=== PATIENT | female | born 1955 | race Caucasian/White ===

== ENCOUNTER → 2017-11-24 | Outpatient (CLI) | payer OTHER ==
[2017-11-24 08:48] LABS: Basophils # (A) 0.1 k/uL (0-0.2); Basophils % (A) 1 %; Eosinophils # (A) 0.2 k/uL (0-0.7); Eosinophils % (A) 3 %; HCT 46.8 % (34.0-46.0); Lymphocytes # (A) 1.9 k/uL (1.0-4.8); Lymphocytes % (A) 30 %; MCH 30.1 pg (25.0-35.0); MCHC 32.1 g/dL (31.0-37.0); MCV 93.9 fL (80.0-100.0); Monocytes # (A) 0.4 k/uL (0-1.0); Monocytes % (A) 7 %; Neutrophils # (A) 3.8 k/uL (1.3-7.7); Neutrophils % (A) 58 %; Platelet Count 411 k/uL (150-450); RBC 4.99 m/uL (3.80-5.40); RDW 13.2 % (11.5-15.5); WBC 6.5 k/uL (3.8-10.6)
[2017-11-24 09:14] LABS: Albumin 4.3 g/dL (3.5-5.0); Anion Gap 12 mmol/L; Carbon Dioxide 24 mmol/L (22-30); Chloride 107 mmol/L (98-107); Cholesterol 233 mg/dL (<200); Glucose 91 mg/dL (74-99); HDL Cholesterol 76 mg/dL (40-60); LDL Cholesterol,Calculated 134 mg/dL (0-99); Sodium 143 mmol/L (137-145); Total Bilirubin 0.6 mg/dL (0.2-1.3); Total Protein 7.6 g/dL (6.3-8.2); Triglycerides 116 mg/dL (<150)
[2017-11-24 09:17] LABS: ALT 36 U/L (9-52); AST 30 U/L (14-36); Alkaline Phosphatase 136 U/L (38-126); Blood Urea Nitrogen 19 mg/dL (7-17); Potassium 4.9 mmol/L (3.5-5.1)
== END | disposition home or self-care (01) ==
LOC: LABWHC1 08:16
PROVIDERS: ATTEND Internal Medicine
DX: E78.00 Pure hypercholesterolemia, unspecified (principal)
CPT/HCPCS: 36415; 80053; 80061; 85025

== ENCOUNTER → 2018-07-07 | Outpatient (CLI) | payer MEDICARE, OTHER ==
--- NOTE | 2018-07-08 14:07 | MM ---
Reason for exam: screening (asymptomatic). Last mammogram was performed 1 year and 8 months ago. History: Patient is postmenopausal. Physical Findings: A clinical breast exam by your physician is recommended on an annual basis and results should be correlated with mammographic findings. MG 3D Screening Mammo W/Cad Bilateral CC and MLO view(s) were taken. Prior study comparison: October 23, 2016, mammogram. August 23, 2015, mammogram. The breast tissue is heterogeneously dense. This may lower the sensitivity of mammography. No suspicious abnormality. No significant changes when compared with prior studies. ASSESSMENT: Negative, BI-RAD 1 RECOMMENDATION: Routine screening mammogram of both breasts in 1 year.
== END | disposition home or self-care (01) ==
LOC: RADMAMWWP 10:48
PROVIDERS: ATTEND Obstetrics & Gynecology
DX: Z12.31 Encounter for screening mammogram for malignant neoplasm of breast (principal)
CPT/HCPCS: 77063; 77067

== ENCOUNTER → 2019-08-31 | Outpatient (CLI) | payer MEDICARE, OTHER ==
--- NOTE | 2019-09-01 10:51 | MM ---
Reason for exam: screening (asymptomatic). Last mammogram was performed 1 year and 2 months ago. History: Patient is postmenopausal. Physical Findings: A clinical breast exam by your physician is recommended on an annual basis and results should be correlated with mammographic findings. MG 3D Screening Mammo W/Cad Bilateral CC and MLO view(s) were taken. Prior study comparison: July 07, 2018, bilateral MG 3d screening mammo w/cad. October 23, 2016, mammogram. There are scattered fibroglandular densities. No significant changes when compared with prior studies. ASSESSMENT: Benign, BI-RAD 2 RECOMMENDATION: Routine screening mammogram of both breasts in 1 year.
--- NOTE | 2019-09-01 13:35 | BD ---
EXAMINATION TYPE: Axial Bone Density DATE OF EXAM: 08/31/2019 COMPARISON: NONE CLINICAL HISTORY: Height: 60.5 Weight: 133.9 FRAX RISK QUESTIONS: Alcohol (3 or more units per day): no Family History (Parent hip fracture): no Glucocorticoids (More than 3mos): no (Ex: prednisone, prednisolone, methylprednisolone, dexamethasone, and hydrocortisone). History of Fracture in Adulthood: yes Secondary Osteoporosis: 1. Type 1 Diabetes: no 2. Hyperthyroidism: no 3. Menopause before 45: no 4. Malnutrition: no 5. Chronic liver disease: no Rheumatoid Arthritis: no Current Tobacco Use: no/ stopped 3 months ago RISK FACTORS HISTORY OF: History of Wrist Fracture: bilateral wrist When: each as a child one as an adult Family History of Osteoporosis: yes Active: yes Diet low in dairy products/other sources of calcium: yes Postmenopausal woman: age 56 Lost more than 2 inches in height since high school: no MEDICATIONS: advair, omeprazole, benazepril, amlodipine, prevastatin Additional History: EXAM MEASUREMENTS: Bone mineral densitometry was performed using the [employer] System. Bone mineral density as measured about the Lumbar spine is: ----- L1-L4(G/cm2): 0.873 T Score Values are as follows: ----- L2: -2.6 ----- L3: -3.0 ----- L4: -2.5 ----- L1-L4: -2.6 Bone mineral density : baseline Bone mineral density about the R hip (g/cm2): 0.718 Bone mineral density about the L hip (g/cm2): 0.751 T Score values are as follows: -----R Neck: -2.3 -----L Neck: -2.1 -----R Total: -1.9 -----L Total: -1.6 Bone mineral density : baseline IMPRESSION: Osteoporosis NOTE: T-SCORE=SD OF THE YOUNG ADULT MEAN.
== END | disposition home or self-care (01) ==
LOC: RADMAMWWP 15:39
PROVIDERS: ATTEND Obstetrics & Gynecology
DX: Z12.31 Encounter for screening mammogram for malignant neoplasm of breast (principal); Z78.0 Asymptomatic menopausal state; M81.8 Other osteoporosis without current pathological fracture
CPT/HCPCS: 77063; 77067; 77080

== ENCOUNTER → 2020-09-10 | Outpatient (CLI) | payer MEDICARE, OTHER ==
--- NOTE | 2020-09-13 09:46 | MM ---
Reason for exam: screening (asymptomatic). Last mammogram was performed 1 year ago. History: Patient is postmenopausal. Physical Findings: A clinical breast exam by your physician is recommended on an annual basis and results should be correlated with mammographic findings. MG 3D Screening Mammo W/Cad Bilateral CC and MLO view(s) were taken. Prior study comparison: August 31, 2019, bilateral MG 3d screening mammo w/cad. July 07, 2018, bilateral MG 3d screening mammo w/cad. There are scattered fibroglandular densities. No significant changes when compared with prior studies. ASSESSMENT: Benign, BI-RAD 2 RECOMMENDATION: Routine screening mammogram of both breasts in 1 year.
== END | disposition home or self-care (01) ==
LOC: RADMAMWWP 10:48
PROVIDERS: ATTEND Obstetrics & Gynecology
DX: Z12.31 Encounter for screening mammogram for malignant neoplasm of breast (principal); Z78.0 Asymptomatic menopausal state
CPT/HCPCS: 77063; 77067

== ENCOUNTER → 2020-11-23 | Outpatient (CLI) | payer MEDICARE, OTHER ==
--- NOTE | 2020-11-28 10:00 | PE ---
Nuclear medicine PET/CT HISTORY: Solitary pulmonary nodule, initial Patient received 9.8 mCi F-18 FDG intravenously, delayed scanning was performed from the skull base to the mid thighs, an attenuation correction CT, localization CT scan was also performed Correlation to CT low dose chest 11/08/2020, CT chest 08/22/2019 from outside institution Chest and neck: The previously identified abnormal soft tissue in the right upper lobe posteriorly is seen on axial image #78 and is diminished in size as compared to previous chest CT, no associated hy permetabolic uptake. There is no pleural or pericardial effusion. Enlarged thyroid gland is present w ithout associated hypermetabolic uptake, there is associated low dense foci is within the thyroid. Th ere is no mediastinal, axillary, or hilar adenopathy. There are dense coronary artery calcifications. No cervical or supraclavicular adenopathy. ABDOMEN: There is no liver mass. Patient is post cholecystectomy. No evident adrenal mass or retroper itoneal adenopathy. There is no ascites. Osseous structures show degenerative disc change and facet arthropathy in the lower lumbar spine. No associated hypermetabolic uptake. IMPRESSION: There is improvement in the abnormal soft tissue seen on prior exam in the right upper lo be. Findings felt likely to be inflammatory, follow-up to assess for continued resolution.
== END | disposition home or self-care (01) ==
LOC: RADPETMAIN 11:10
PROVIDERS: ATTEND Family Medicine
DX: R91.1 Solitary pulmonary nodule (principal)
CPT/HCPCS: 78815; A9552

== ENCOUNTER → 2020-12-11 | Outpatient (CLI) | payer MEDICARE, OTHER ==
--- NOTE | 2020-12-11 12:35 | XR ---
EXAMINATION TYPE: XR skull limited DATE OF EXAM: 12/11/2020 COMPARISON: None HISTORY: Ear surgery, pre-MRI evaluation TECHNIQUE: Skull is examined in 2 projections. FINDINGS: No radiopaque foreign bodies are identified to contraindicate MRI. Sella is normal. Calvarium appears intact. IMPRESSION: 1. No suspicious radiopaque foreign bodies to contraindicate MRI.
== END | disposition home or self-care (01) ==
LOC: RADXRMAIN 12:07
PROVIDERS: ATTEND Physical Medicine & Rehabilitation
DX: Z01.818 Encounter for other preprocedural examination (principal)
CPT/HCPCS: 70250

== ENCOUNTER 2021-01-02 10:27 | Day surgery (SDC) | payer MEDICARE, OTHER ==
[2020-12-27 13:58] VITALS: BMI 25.1
[~2021-01-02 10:27] MED LIST: LACTATED RINGERS 1,000 ML IV SCH; LIDOCAINE 1% (10MG/ML) FOR IV START INTRADERMA PRN
[2021-01-02 10:42] VITALS: TEMP 97.6
[2021-01-02] MEDS ORDERED: PROPOFOL 10 MG/ML 20 ML VIAL IV ONE (11:39)
[2021-01-02] MEDS ORDERED: GLYCOPYRROLATE 0.2 MG/ML 2 ML VIAL ONE (11:39)
--- NOTE | 2021-01-02 12:08 | P.PCN ---
Date of Procedure: 01/02/21 Procedure(s) Performed: BRIEF HISTORY: Patient is a 65-year-old pleasant white female scheduled for an elective colonoscopy as a part of screening for colon cancer and family history of colon cancer.. Her father was excellent colon cancer at age 70. PROCEDURE PERFORMED: Colonoscopy. PREOPERATIVE DIAGNOSIS: Screening for colon cancer and family history of colon cancer. IV sedation per Anesthesia. PROCEDURE: After informed consent was obtained, the patient, was brought into the endoscopy unit. IV sedation was administered by Anesthesia under continuous monitoring. Digital rectal examination was normal. Initially the Olympus CF-160 flexible video colonoscope was then inserted in the rectum, gradually advanced into the cecum without any difficulty. Careful examination was performed as the scope was gradually being withdrawn. Ileocecal valve and the appendiceal orifice were visualized and appeared normal. Prep was oral in several areas of the colon. Mucosa of the cecum, ascending colon, transverse colon, descending colon, sigmoid colon, and rectum appeared normal. Retroflexion was performed in the rectum and all internal hemorrhoids were seen. The patient tolerated the procedure well. IMPRESSION: Normal-appearing colon from rectum to cecum with no evidence of colorectal neoplasia . Small internal hemorrhoids. RECOMMENDATIONS: Findings of this examination were discussed with the patient as well as her family. She was advised to have a screening colonoscopy in 5 years from now because of the family history of colon cancer.
[2021-01-02 12:43] VITALS: BP 116/77; PULSE 76; RESP 18
== END 2021-01-02 12:59 | disposition home or self-care (01) ==
LOC: ORWHC2ENDO 10:27
PROVIDERS: ATTEND Internal Medicine Gastroenterology
DX: Z12.11 Encounter for screening for malignant neoplasm of colon (principal); K64.8 Other hemorrhoids; I10 Essential (primary) hypertension; E78.5 Hyperlipidemia, unspecified; J44.9 Chronic obstructive pulmonary disease, unspecified; K21.9 Gastro-esophageal reflux disease without esophagitis; Z98.890 Other specified postprocedural states; Z80.0 Family history of malignant neoplasm of digestive organs; Z79.51 Long term (current) use of inhaled steroids; Z79.891 Long term (current) use of opiate analgesic; Z79.899 Other long term (current) drug therapy; Z88.5 Allergy status to narcotic agent; Z88.8 Allergy status to other drugs, medicaments and biological substances
CPT/HCPCS: J2704; G0105; 45378

== ENCOUNTER → 2021-05-21 | Outpatient (CLI) | payer MEDICARE, OTHER ==
[2021-05-21 13:42] LABS: African American GFR (CKD) >90 (>60 ml/min/1.73 sqM); Blood Urea Nitrogen 20 mg/dL (7-17); Non-African American GFR(CKD) >90 (>60 ml/min/1.73 sqM)
--- NOTE | 2021-05-21 14:33 | CT ---
EXAMINATION TYPE: CT chest w con DATE OF EXAM: 05/21/2021 COMPARISON: PET/CT November 23, 2020 and older CTs HISTORY: lung nodule CT DLP: 419 mGycm. Automated Exposure Control for Dose Reduction was Utilized. TECHNIQUE: CT scan of the thorax is performed following with IV Contrast, patient injected with 100 mL of Isovue 300. FINDINGS: LUNGS: Mild underlying emphysematous change redemonstrated. Interval resolution of irregular nodular consolidation posterior aspect right upper lobe. No new greater than 5 mm pulmonary nodules and/or ma sses are identified. No pleural effusion or pneumothorax seen. MEDIASTINUM: There are no greater than 1 cm hilar or mediastinal lymph nodes. No cardiomegaly or pe ricardial effusion is seen. Coronary artery calcification redemonstrated. Persistent heterogeneous e nlarged left thyroid with greater than 1 cm thyroid nodule and substernal extension. Consider follow- up thyroid ultrasound to further evaluate based on clinical correlation. OTHER: Cholecystectomy clips are redemonstrated. IMPRESSION: No persistent suspicious or new greater than 5 mm pulmonary nodules.
== END | disposition home or self-care (01) ==
LOC: RADCTMAIN 12:56
PROVIDERS: ATTEND Internal Medicine Critical Care Medicine
DX: R91.1 Solitary pulmonary nodule (principal)
CPT/HCPCS: 82565; 84520; 71260; 36415; Q9967

== ENCOUNTER → 2021-10-04 | Outpatient (CLI) | payer MEDICARE, OTHER ==
--- NOTE | 2021-10-07 09:38 | BD ---
EXAMINATION TYPE: Axial Bone Density DATE OF EXAM: 10/04/2021 COMPARISON: NONE CLINICAL HISTORY: 66 years year old Female. ICD-10 CODE: Z78.0 POST MENOPAUSAL WITHOUT HRT Height: 60 Weight: 134.4 FRAX RISK QUESTIONS: Alcohol (3 or more units per day): NO Family History (Parent hip fracture): NO Glucocorticoids (More than 3mos): NO History of Fracture in Adulthood: WRIST Secondary Osteoporosis: 1. Type 1 Diabetes: NO 2. Hyperthyroidism: NO 3. Menopause before 45: NO 4. Malnutrition: NO 5. Chronic liver disease: NO Rheumatoid Arthritis: NO Current Tobacco Use: NO RISK FACTORS HISTORY OF: Hip Fracture (Right/Left): NO Spine Fracture: NO History of Wrist Fracture: BILATERAL When: AGE 48, ONE A CHILD Surgery to Spine/Hip(right/left)/Wrist (right/left): NO Family History of Osteoporosis: YES, MOTHER Active: YES Diet low in dairy products/other sources of calcium: YES Postmenopausal woman: YES Take estrogen and/or progesterone medications: NO Lost more than 2 inches in height since high school: YES Frequent falls: NO Poor Health: NO Hyperparathyroidism: NO Adrenal Insufficiency: NO MEDICATIONS: Prednisone or other steroids: NO Thyroid Medications: NO Osteoporosis Medications: CALCIUM 600 TWICE A DAY How Lon YEARS Additional Medications: BP MEDS, PRAVASTATIN, REFLUX MEDS, ADVAIR INHALER, GUERA POTASSIUM, CALCIUM, EXAM MEASUREMENTS: Bone mineral densitometry was performed using the [employer]. Bone mineral density as measured about the Lumbar spine is: ----- L1-L4(G/cm2): 0.865 T Score Values are as follows: ----- L1: -2.7 ----- L2: -2.8 ----- L3: -2.1 ----- L4: -3.0 ----- L1-L4: -2.6 BASELINE STUDY Bone mineral density about the R hip (g/cm2): 0.677 Bone mineral density about the L hip (g/cm2): 0.710 T Score values are as follows: -----R Neck: -2.6 -----L Neck: -2.4 -----R Total: -2.2 -----L Total: -1.7 BASELINE STUDY FRAX%s: The graph provided illustrates a 23.8% chance for a major osteoporotic fx and a 6.1% chance f or the hips probability for fx in 10 years time. IMPRESSION: Osteoporosis (T Score less than -2.5). There is increased fracture risk and therapy is usually indicated based on age. Re-Screen 1-2 years. NOTE: T-SCORE=SD OF THE YOUNG ADULT MEAN.
--- NOTE | 2021-10-07 18:39 | MM ---
Reason for Exam: Screening (asymptomatic). Last screening mammogram was performed 12 month(s) ago. Patient History: Menarche at age 12. First Full-Term at age 18. Postmenopausal. Risk Values: Tammy 5 year model risk: 1.4%. NCI Lifetime model risk: 4.6%. Prior Study Comparison: 07/07/2018 Bilateral Screening Mammogram, [facility]. 08/31/2019 Bilateral Screening Mammogram, [facility]. 09/10/2020 Bilateral Screening Mammogram, [facility]. Tissue Density: There are scattered fibroglandular densities. Findings: Analyzed By CAD. There is no suspicious group of microcalcifications or new suspicious mass in either breast. Overall Assessment: Negative, BI-RAD 1 Management: Screening Mammogram of both breasts in 1 year. 1. Patient should continue monthly self breast exams. 2. A clinical breast exam by your physician is recommended on an annual basis. 3. This exam should not preclude additional follow-up of suspicious palpable abnormalities. Electronically signed and approved by: Ronny Edward M.D. Radiologist
== END | disposition home or self-care (01) ==
LOC: RADMAMWWP 10:14
PROVIDERS: ATTEND Obstetrics & Gynecology
DX: Z12.31 Encounter for screening mammogram for malignant neoplasm of breast (principal); Z78.0 Asymptomatic menopausal state; M81.0 Age-related osteoporosis without current pathological fracture
CPT/HCPCS: 77063; 77067; 77080

== ENCOUNTER → 2022-06-18 | Outpatient (CLI) | payer MEDICARE, OTHER ==
--- NOTE | 2022-06-18 15:02 | US ---
EXAMINATION TYPE: US thyroid st tissue head/neck DATE OF EXAM: 06/18/2022 COMPARISON: NONE CLINICAL HISTORY: E04.1 NONTOXIC SINGLE THYROID NODULE. Thyroid nodule. GLAND SIZE: Right Lobe: 6.0 x 2.7 x 2.4 cm Overall Parenchyma: heterogenous Left Lobe: 6.4 x 3.3 x 2.8 cm Overall Parenchyma: heterogeneous Isthmus Thickness: .8 cm NODULES RIGHT: # of nodules measured on right: Multiple measured 2 largest. 1. 1.3 X .9 x 1.1 cm, lower , solid or almost completely solid, hypoechoic nodule, which is wider t wood tall, with smooth margins, without echogenic foci. TR 4. Prior size: no previous 2. 1.1 X .8 x .9 cm, lower , solid or almost completely solid, hypoechoic nodule, which is wider th an tall, with smooth margins, without echogenic foci. TR 4. Prior size: No previous. LEFT: # of nodules measured on left: 1 1. 4.1 X 2.5 x 3.9 cm, lower , solid or almost completely solid, hypoechoic nodule, which is wider than tall, with smooth margins, without echogenic foci. TR 4. Prior size: No previous. ISTHMUS: # of nodules measured in the isthmus: 0 Bilateral neck scanned, no evidence of lymphadenopathy. IMPRESSION: Dominant left thyroid lobe nodule measuring up to 4.1 cm consistent with ACR TI-RADS category TR 4. F ine-needle aspiration is recommended. There are 2 TR 4 small nodules in the right thyroid lobe. Follow-up ultrasound in one year is recomme nded.
== END | disposition home or self-care (01) ==
LOC: RADUSWWP 12:43
PROVIDERS: ATTEND Family Medicine
DX: E04.2 Nontoxic multinodular goiter (principal)
CPT/HCPCS: 76536

== ENCOUNTER 2022-06-20 10:49 | Day surgery (SDC) | payer MEDICARE, OTHER ==
[2022-06-17 12:25] VITALS: BMI 26.5
[2022-06-20] MEDS ORDERED: LACTATED RINGERS 1,000 ML IV ONE (11:24)
[2022-06-20 11:43] VITALS: RESP 16; TEMP 98.5
[2022-06-20] MEDS ORDERED: PROPOFOL 10 MG/ML 20 ML VIAL IV ONE (12:12)
--- NOTE | 2022-06-20 12:18 | P.PCN ---
Date of Procedure: 06/20/22 Procedure(s) Performed: BRIEF HISTORY: Patient is a 67-year-old, pleasant, white female scheduled for an upper endoscopy as a part of evaluation of severe reflux symptoms for the last 6 months duration. She has prior history of Nahun fundoplication 2007. He was started on omeprazole 40 mg daily with some relief. PROCEDURE PERFORMED: Esophagogastroduodenoscopy with biopsy.. PREOPERATIVE DIAGNOSIS: GERD of 6 months duration. IV sedation per anesthesia. PROCEDURE: After informed consent was obtained, the patient was brought into the endoscopy unit. IV sedation was administered by Anesthesia under continuous monitoring. Initially the Olympus GIF-140 video endoscope was inserted into the mouth. Esophagus intubated without any difficulty. It was gradually advanced into the stomach and duodenum and carefully examined. The bulb and the second part of the duodenum appeared normal. The scope at this time was withdrawn to the stomach, adequately insufflated with air, and upon careful examination, mucosa of the antrum, had mild antral gastritis and biopsies were done from this area. Mucosa of the body, cardia and the fundus appeared normal. The scope was then withdrawn into the esophagus. The GE junction was located at 31 cm from the incisors. There was a 2 mm probably was appearing mucosa just proximal to the GE junction which was biopsied. There were 2 superficial erosions in the distal esophagus consistent with LA grade B reflux esophagitis. Rest of esophagus appeared normal and the patient tolerated the procedure well. IMPRESSION: 1. Small hiatal hernia. 2. 2 superficial erosions at the GE junction consistent with LA grade B reflux esophagitis 3. Short segment Oseguera's esophagus status post. RECOMMENDATIONS: The findings of this examination were discussed with the patient as well as a family. She was advised to continue with omeprazole 20 mg daily and follow antireflux measures. Continue with diet modification.. The biopsy confirms the presence of Oseguera's esophagus. A repeat upper endoscopy in 3 years.
[2022-06-20 12:47] VITALS: BP 113/72; PULSE 77
== END 2022-06-20 13:20 | disposition home or self-care (01) ==
LOC: ORWHC2ENDO 10:49
PROVIDERS: ATTEND Internal Medicine Gastroenterology
DX: K29.50 Unspecified chronic gastritis without bleeding (principal); K22.70 Barrett's esophagus without dysplasia; K44.9 Diaphragmatic hernia without obstruction or gangrene; K21.00 Gastro-esophageal reflux disease with esophagitis, without bleeding; Z98.890 Other specified postprocedural states; Z79.899 Other long term (current) drug therapy; I10 Essential (primary) hypertension; E78.5 Hyperlipidemia, unspecified; J44.9 Chronic obstructive pulmonary disease, unspecified; Z87.891 Personal history of nicotine dependence; E04.1 Nontoxic single thyroid nodule; F41.9 Anxiety disorder, unspecified
CPT/HCPCS: 43239; 88305; J2704

== ENCOUNTER → 2022-11-03 | Outpatient (CLI) | payer MEDICARE, OTHER ==
--- NOTE | 2022-11-04 10:45 | MM ---
Reason for Exam: Screening (asymptomatic). Last mammogram was performed 1 year(s) and 1 month(s) ago. Patient History: Menarche at age 12. First Full-Term at age 18. Postmenopausal. Risk Values: Tammy 5 year model risk: 1.4%. NCI Lifetime model risk: 4.3%. Prior Study Comparison: 08/31/2019 Bilateral Screening Mammogram, [facility]. 09/10/2020 Bilateral Screening Mammogram, [facility]. 10/04/2021 Bilateral MG 3D screening mammo w/cad, [facility]. Tissue Density: The breast tissue is heterogeneously dense. This may lower the sensitivity of mammography. Findings: Analyzed By CAD. There is no suspicious group of microcalcifications or new suspicious mass in either breast. Overall Assessment: Negative, BI-RAD 1 Management: Screening Mammogram of both breasts in 1 year. . Patient should continue monthly self-breast exams. A clinical breast exam by your physician is recommended on an annual basis. This exam should not preclude additional follow-up of suspicious palpable abnormalities. Note on Tammy scores and lifetime risk: 1. A Tammy score greater than 3% is considered moderate risk. If this is the case, consider specialist referral to assess eligibility for a risk reducing agent. 2. If overall lifetime risk for the development of breast cancer is 20% or higher, the patient may qualify for future screening with alternating mammogram and breast MRI. Electronically signed and approved by: Jaron Lara M.D. Radiologis
== END | disposition home or self-care (01) ==
LOC: RADMAMWWP 11:15
PROVIDERS: ATTEND Obstetrics & Gynecology
DX: Z12.31 Encounter for screening mammogram for malignant neoplasm of breast (principal); Z78.0 Asymptomatic menopausal state
CPT/HCPCS: 77063; 77067

== ENCOUNTER → 2022-12-15 | Outpatient (CLI) | payer MEDICARE, OTHER ==
--- NOTE | 2022-12-15 13:05 | US ---
EXAMINATION TYPE: US pelvis complete transvag DATE OF EXAM: 12/15/2022 COMPARISON: PET CT CLINICAL INDICATION: Female, 67 years old with history of R10.2 PELVIC AND PERINEAL PAIN; Pt states b ilateral pelvic pain upon palpation/ pt states history of oophorectomy, however pt unsure which ovary was removed TECHNIQUE: Transvaginal (TV) and Transabdominal (TA) . Transabdominal sonographic images of the pel vis were acquired. Transvaginal sonographic images were medically necessary to better assess the fol lowing anatomy: Entire pelvis Date of LMP: age 50's EXAM MEASUREMENTS: Uterus: 5.5 x 2.4 x 3.7 cm Endometrial Stripe: 0.3 cm 1. Uterus: Retroverted wnl 2. Endometrium: scant amount of fluid within canal 3. Right Ovary: Obscured by overlying bowel gas 4. Left Ovary: Obscured by overlying bowel gas 5. Bilateral Adnexa: wnl 6. Posterior cul-de-sac: wnl IMPRESSION: 1. No evidence for acute process. 2. Endometrium within normal limits. 3. Surgically absent ovaries.
== END | disposition home or self-care (01) ==
LOC: RADUSWWP 12:15
PROVIDERS: ATTEND Obstetrics & Gynecology
DX: R10.2 Pelvic and perineal pain (principal); Z90.722 Acquired absence of ovaries, bilateral
CPT/HCPCS: 76830; 76856

== ENCOUNTER → 2023-01-09 | Outpatient (CLI) | payer MEDICARE, OTHER ==
[2023-01-09 16:26] LABS: Phosphorus 3.9 mg/dL (2.4-5.1); T4, Free (Free Thyroxine) 1.13 ng/dL (0.80-1.80)
== END | disposition home or self-care (01) ==
LOC: LABWHC1 08:26
PROVIDERS: ATTEND Family Medicine
DX: M81.0 Age-related osteoporosis without current pathological fracture (principal); E04.2 Nontoxic multinodular goiter; E55.9 Vitamin D deficiency, unspecified
CPT/HCPCS: 36415; 82306; 82523; 83970; 84100; 84439; 84443

== ENCOUNTER → 2023-06-02 | Outpatient (CLI) | payer MEDICARE, OTHER ==
--- NOTE | 2023-06-02 14:51 | CTL ---
EXAMINATION TYPE: CT Low Dose Lung DATE OF EXAM: 06/02/2023 2:15 PM CLINICAL INDICATION:Female, 68 years old with history of Z12.2,Z87.891; Former smoker, quit x4yrs. 1P PD x50yrs. , history of tobacco use. COMPARISON: 05/21/2021. TECHNIQUE: Multiple axial non-contrast scans were obtained from approximately the lung apices through the upper abdomen. Coronal and sagittal reformatted images were obtained. Low dose technique was uti lized. CT DLP: 89.9 mGycm, Automated exposure control for dose reduction was used. CT Contrast: Contrast used: None Oral contrast used: None FINDINGS: ======== Lack of intravenous contrast and low dose technique limits the evaluation of the vascular and soft ti ssue structures. LUNGS: No evidence of pulmonary fibrosis. No evidence of focal consolidation, pneumothorax or pleural effusion. Mild centrilobular emphysema changes throughout the lungs. Nodules: RUL: None. RML: None. RLL: None. MIN: None. LLL: None. AIRWAY: Patent and unremarkable. HEART: Size within normal limits. Mild atherosclerosis of the arterial vasculature. MEDIASTINUM: No gross evidence of adenopathy. VASCULATURE: No aortic aneurysm. MUSCULOSKELETAL: Mild disc degeneration changes are present throughout the thoracolumbar spine. Parti ally calcified right pulmonary hilum lymph nodes. SOFT TISSUES/LYMPH NODES: Unremarkable. LOWER NECK: No significant findings. UPPER ABDOMEN: Gallbladder surgically absent. IMPRESSION: 1. No clinically significant pulmonary nodules. 2. Mild emphysema. 3. Mild coronary artery atherosclerosis. CT LUNG RAD AND CT CHEST RECOMMENDATION: Lung-Rad 1 Negative: Continue annual screening with LDCT in 12 months. S Modifier (other clinically significant findings): None Recommend smoking cessation (if current smoker), or continuation of smoking cessation (if prior smoke r). Annual screening for lung cancer with low-dose computed tomography is recommended in adults ages 55 to 77 years who have a 30 pack-year smoking history and currently smoke or have quit within the pa st 15 years. Screening should be discontinued once a person has not smoked for 15 years or develops a health problem that substantially limits life expectancy or the ability or willingness to have curat ruben lung surgery. Lung rads 2021 [email or web address]
== END | disposition home or self-care (01) ==
LOC: RADCTMAIN 13:46
PROVIDERS: ATTEND Family Medicine
DX: Z12.2 Encounter for screening for malignant neoplasm of respiratory organs (principal); J43.2 Centrilobular emphysema; I25.10 Atherosclerotic heart disease of native coronary artery without angina pectoris; Z87.891 Personal history of nicotine dependence
CPT/HCPCS: 71271

== ENCOUNTER → 2023-12-16 | Outpatient (CLI) | payer MEDICARE, OTHER ==
--- NOTE | 2023-12-16 10:23 | FL ---
EXAMINATION TYPE: FL UGI air w esophagus DATE OF EXAM: 12/16/2023 CLINICAL INDICATION: 68 year-old female K21.9, GERD without esophagitis. Patient with history of jacob r hernia repair 15 years ago. Patient with symptoms of recurrent reflux intensifying over the last 5 months. COMPARISON: None Total fluoroscopy time 1 minute 40 seconds. Total images: 50 Total DAP: 75 mGycm2. FINDINGS: The swallowing mechanism is normal. There is moderate hypertrophy of the cricopharyngeus muscle but w ithout obstruction. The remainder of the hypopharyngeal anatomy is preserved. The thoracic portion demonstrates a normal course and caliber. The mucosa is normal and no persistent filling defect is encountered. There is a small sliding hiatal hernia which enlarges with Valsalva maneuver. Mild gastroesophageal r eflux is visualized during the course of the exam. Likely underestimated given the CP muscle hypertro phy. The stomach shows diffuse gastric fold thickening and possibly of by mouth small hyperplastic polyps along the fundus and proximal body region. No discrete ulceration is identified. The duodenum is free of any persistent filling defect and demonstrate a normal mucosal pattern. IMPRESSION: 1. Recurrence of a small hiatal hernia. 2. Moderate CP muscle hypertrophy, likely reactive thickening, suggesting significant gastroesophagea l reflux disease. 3. Diffuse gastric fold thickening and suggestion of a few small hyperplastic polyps. Correlate for c hronic gastritis. No discrete ulcer is seen. [facility], , 12/16/2023 10:21 AM
== END | disposition home or self-care (01) ==
LOC: RADFLMAIN 07:40
PROVIDERS: ATTEND Surgery
DX: K21.9 Gastro-esophageal reflux disease without esophagitis
CPT/HCPCS: 74246

== ENCOUNTER 2023-12-17 08:13 | Day surgery (SDC) | payer MEDICARE, OTHER ==
[2023-12-15 15:01] VITALS: BMI 26.9
[2023-12-17] MEDS: IV FLUID CONTINUATION 1,000 ML IV ONE (08:26)
[2023-12-17 08:32] VITALS: TEMP 97.9
[2023-12-17] MEDS: LACTATED RINGERS 1,000 ML IV SCH (08:39)
[2023-12-17] MEDS ORDERED: PROPOFOL 10 MG/ML 20 ML VIAL IV ONE (08:42)
[2023-12-17 08:57] VITALS: BP 132/87
--- NOTE | 2023-12-17 08:59 | P.OP ---
Date of Procedure: 12/17/23 Description of Procedure: Date of Procedure: 12/17/23 Preoperative Diagnosis: Gerd Postoperative Diagnosis: Hiatal hernia Esophagitis Antral gastritis Procedure(s) Performed: EGD Anesthesia: MAC Surgeon: Harsha Nina Pathology: other (Antrum, esophagus) Condition: stable Disposition: PACU Description of Procedure: The patient was placed on the endoscopy table in the lateral position. She received IV sedation. The Gastroflux oropharynx passed in the esophagus and stomach. Scope was placed through the pylorus. The first and second portion of the duodenum appeared normal. Scope was then brought back to the antrum and s this appeared to be mildly inflamed. A biopsy performed. Scope was then retroflexed and the Mainer of the stomach appeared normal. There was a moderate size hiatal hernia. The GE junction was at 38 cm. The distal esophagus appeared mildly Flaim and a biopsy was performed of the proximal esophagus appeared normal. Scope withdrawn for the patient. Additional CC's: Marshall Olmos
[2023-12-17 09:12] VITALS: PULSE 87; RESP 16
== END 2023-12-17 09:28 | disposition home or self-care (01) ==
LOC: ORWHC2ENDO 08:13
PROVIDERS: ATTEND Surgery
DX: K21.9 Gastro-esophageal reflux disease without esophagitis
CPT/HCPCS: 43239; 88305

== ENCOUNTER → 2024-01-01 | Outpatient (CLI) | payer MEDICARE, OTHER ==
[2024-01-01 15:06] LABS: HCT 42.6 % (37.2-46.3); HGB 13.9 g/dL (12.0-15.0); MCH 28.6 pg (27.0-32.0); MCHC 32.6 g/dL (32.0-37.0); MCV 87.7 FL (80.0-97.0); Mean Platelet Volume 9.9 FL (9.5-12.2); NRBC Per 100 WBC 0 X 10*3/uL (0.00-0.01); Platelet Count 392 X 10*3/uL (140-440); RBC 4.86 X 10*6/uL (4.10-5.20); WBC 8.66 X 10*3/uL (4.50-10.00)
== END | disposition home or self-care (01) ==
LOC: LABPAT 09:37
PROVIDERS: ATTEND Family Medicine
CPT/HCPCS: 36415; 85027; 93005

== ENCOUNTER 2024-01-04 07:09 | Day surgery (SDC) | payer MEDICARE, OTHER ==
[2023-12-31 12:50] VITALS: BMI 26.9
[2024-01-04] MEDS ORDERED: MIDAZOLAM 2 MG/2 ML VIAL IV PRN (07:34)
[2024-01-04] MEDS: IV FLUID CONTINUATION 1,000 ML IV ONE ×2 (08:03→10:15)
[2024-01-04] MEDS: LACTATED RINGERS 1,000 ML IV SCH ×2 (08:07→11:19)
[2024-01-04] MEDS: ACETAMINOPHEN TAB 500 MG TAB PO PRN (08:07)
[2024-01-04] MEDS: ONDANSETRON 4 MG/2 ML VIAL IVP ONE (08:08)
[2024-01-04] MEDS: HEPARIN SODIUM,PORCINE 5,000 UNIT/ML 1 ML VIAL SQ PRN (08:08)
[2024-01-04] MEDS: DEXAMETHASONE SOD PHOSPHATE 4 MG/ML 1 ML VIAL IV ONE (08:08)
[2024-01-04] MEDS ORDERED: NEOSTIGMINE 1 MG/ML 10 ML VIAL ONE (09:03)
[2024-01-04] MEDS ORDERED: LIDOCAINE 1% INJ 10MG/ML (20 ML MDV) ONE (09:03)
[2024-01-04] MEDS ORDERED: KETOROLAC 15 MG/ML 1 ML VIAL ONE (09:03)
[2024-01-04] MEDS ORDERED: fentaNYL (PF) 50 MCG/ML 2 ML AMP ONE (09:03)
[2024-01-04] MEDS ORDERED: ePHEDrine 50 MG/ML 1 ML VIAL ONE (09:03)
[2024-01-04] MEDS ORDERED: HYDROmorphone (PF) 1 MG/ML ONE (09:03)
[2024-01-04] MEDS ORDERED: ceFAZolin 1 GM/50 ML BAG (PMX) ONE (09:03)
[2024-01-04] MEDS ORDERED: PROPOFOL 10 MG/ML 20 ML VIAL IV ONE (09:03)
[2024-01-04] MEDS ORDERED: MIDAZOLAM 2 MG/2 ML VIAL ONE (09:03)
[2024-01-04] MEDS ORDERED: ROCURONIUM 10 MG/ML (5 ML VIAL) IV ONE (09:03)
[2024-01-04] MEDS ORDERED: GLYCOPYRROLATE 0.2 MG/ML 2 ML VIAL ONE (09:03)
[2024-01-04] MEDS: SODIUM CHLORIDE 0.9% 50 ML with ceFAZolin 2 GM IV ONE (09:03)
[2024-01-04] MEDS: LIDOCAINE 1%-EPI 1:100,000 20 ML VIAL SQ ONE ×2 (09:39→10:16)
[2024-01-04] MEDS: ALBUTEROL NEBULIZED 2.5 MG/3 ML INHALATION STA (10:30)
[2024-01-04] MEDS ORDERED: NALOXONE 0.4 MG/ML 1 ML VIAL IV PRN (10:46)
[2024-01-04] MEDS ORDERED: ACETAMINOPHEN TAB 325 MG TAB PO PRN (10:46)
[2024-01-04] MEDS ORDERED: HYDROmorphone 0.5 MG/0.5 ML SYRINGE IVP PRN (10:46)
[2024-01-04] MEDS ORDERED: ONDANSETRON 4 MG/2 ML VIAL IVP PRN (10:46)
[2024-01-04] MEDS: fentaNYL (PF) 50 MCG/ML 2 ML AMP IV PRN (10:46)
[2024-01-04] MEDS ORDERED: HYDROmorphone 1 MG/ML 1 ML SYRINGE IVP PRN (10:46)
--- NOTE | 2024-01-04 10:46 | P.OP ---
Date of Procedure: 01/04/24 Preoperative Diagnosis: Hiatal hernia Postoperative Diagnosis: Recurrent hiatal hernia Procedure(s) Performed: Laparoscopic repair of recurrent hiatal hernia with Marshall bio a mesh Anesthesia: LINDA Surgeon: Harsha Nina Estimated Blood Loss (ml): 5 Pathology: none sent Condition: stable Disposition: PACU Description of Procedure: The patient was placed on the operating table in the supine position. She received general anesthesia. She was then placed in dorsal lithotomy position. Her abdomen was prepped and draped in the usual sterile fashion. The skin incision sites were anesthetized with 1% local Xylocaine. The skin was incised in the left periumbilical area with an 11 scalpel. Using a 5 mm blade was trocar under direct visitation the peritoneal cavity was entered. And then insufflated. After adequate insufflation the laparoscope was placed back into the peritoneal cavity. Next a 5 mm trocar was placed in the right epigastric and then the right lateral position. Another 5 mm trochars placed in the left lateral position. Another 5 mm trocar placed in the left epigastric position. And the original left periumbilical trocar was exchanged for a 10 mm trocar. The left lateral lobe liver was retracted. The patient had a large hiatal hernia. Using the Harmonic scissors the crural defect was dissected in the Harmonic scissors were used to dissect the hiatal hernia sac. The fundus of the stomach was completely mobilized by using the Harmonic scissors to divide short gastric vessels. The stomach was reduced into the peritoneal cavity. The crura was dissected with the Harmonic scissors. And then the crural repair was performed using 2-0 Ethibond suture. The Marshall bio A mesh was then placed over top of the repair and secured with 2-0 Ethibond suture. The stomach and esophagus were inspected there is known to any injury to the stomach or esophagus. The abdomen was irrigated there is no bleeding seen. The trochars are withdrawn. Skin was closed interrupted 3-0 Monocryl suture. Dermabond was applied. Patient tolerated procedure well and was sent to recovery in stable condition.
[2024-01-04] MEDS: KETOROLAC 15 MG/ML 1 ML VIAL IVP SCH (12:27)
[2024-01-04] MEDS ORDERED: IPRATROPIUM-ALBUTEROL 3 ML NEB INHALATION PRN (12:38)
[2024-01-04] MEDS: HYDROmorphone 0.5 MG/0.5 ML SYRINGE IVP PRN (14:28)
--- NOTE | 2024-01-04 15:01 | P.CONS ---
History of Present Illness - Reason for Consult Consult date: 01/04/24 Medical Management Requesting physician: Harsha Nina - History of Present Illness History of Presenting Illness: Patient is a pleasant 68-year-old female with a past medical history of COPD not home oxygen dependent, hypertension, hyperlipidemia, macular degeneration, and GERD. She is currently admitted under general surgery team status post laparos copic repair of recurrent hiatal hernia. We were consulted for medical management throughout hospitalization. Patient seen and fully evaluated in room 451. She was resting comfortably, she reports moderate postoperative pain. She denies any nausea or vomiting. She is currently tolerating clear liquids. Patient denies having any chest pain, shortness of breath, cough, or experiencing any numbness/tingling/weakness in her extremities. Review of systems: Pertinent positives and negatives as discussed in HPI, a complete review of systems was performed and all other systems are negative. Physical exam: Vital signs reviewed and stable. General: Nontoxic, no distress and appears stated age. Derm: Skin warm and dry, normal coloration for ethnicity. Head: Atraumatic, normocephalic and symmetric. Eyes: EOM's intact, no lid lag, and anicteric sclera Mouth: no lip lesions, mucus membranes moist Cardiovascular: regular rate and rhythm with normal S1S2, no murmur, positive posterior tibial pulses bilaterally, and cap refill < 2 seconds. Lungs: Respirations even, regular, and unlabored on supplemental oxygen. Lungs CTA bilaterally, no rhonchi, no rales, no wheezing, and no accessory muscle usage. Abdominal: soft, nontender to palpation, no guarding, no appreciable organomegaly. Laparoscopic incisions intact. Ext: ROM intact. No gross muscle atrophy, no edema, no contractures Neuro: Speech clear, face symmetrical and CN II-XII grossly intact with no noted focal neuro deficits Psych: Alert and oriented to person, place, time, and situation. Appropriate and pleasant affect. Assessment and Plan of Care: Status post laparoscopic repair of recurrent hiatal hernia -Management per primary admitting general surgery team including DVT prophylaxis, pain management, wound/dressing management, and advancement of diet. -Order placed for postoperative labs including CBC, BMP, and magnesium. Acute hypoxic respiratory failure, postoperative hypoxia COPD, not on home oxygen -Continue to provide supplemental oxygen and titrate as needed to maintain SPO2 equal to or greater than 92%. Currently on 3 L O2 via nasal cannula with SpO2 of 93%. -Telemetry monitoring. -Monitor pulse-oximetry -Duonebs scheduled 4 times daily and as needed for SOB and/or wheezing -Incentive Spirometry, encourage use 10-15 times hourly while awake. -Continue Symbicort 80-4.5 mcg inhaler 2 puffs twice daily and Wixela 250-50 mg inhaler 1 puff twice daily. Hypertension. Continue daily medication regimen with benazepril hydrochlorothiazide 20 mg daily. Hyperlipidemia. Continue daily medication regimen with pravastatin 40 mg nightly. GERD. Continue daily medication regimen with omeprazole 40 mg daily. Anxiety with depression. Continue daily medication regimen with Celexa 20 mg daily and BuSpar 10 mg daily. Data reviewed: Reviewed preoperative labs completed 01/01/2024. CBC showing WBC count of 8.66, hemoglobin of 13.9, and platelet count of 392. BMP was unremarkable. Vital signs reviewed. Blood pressure 116/59, heart rate 67, respiratory rate 14, temp 97.9 F, and SpO2 of 93% on 3 L. Thank you for allowing us to participate in the care of this pleasant patient. Do not hesitate to contact us with questions. Someone can be reached from the [facility]ist group all hours of the day at [phone] or via [employer]. Patient was seen independently by Nurse Practitioner. This document was prepared using [employer] dictation software. Please allow for errors in chief power dispatcher while rare they do occur. Johnny Claros NP rendered care for this patient independently, reviewed the findings and plan as documented in the note above. I did not physically speak with or examine the patient on this date. . Past Medical History Past Medical History: COPD, Eye Disorder, GERD/Reflux, Hearing Disorder / Deafness, Hypertension Additional Past Medical History / Comment(s): POSS "HEAT STROKE" IN 2016. LT EYE MACULAR DEGENERATION; BEING WATCHED FOR GLAUCOMA. HX HOLE IN STOMACH, HAD REPAIR ESOPHAGUS. OSTEOPOROSIS. History of Any Multi-Drug Resistant Organisms: None Reported Past Surgical History: Appendectomy, Orthopedic Surgery Additional Past Surgical History / Comment(s): RT TRIGGER THUMB. REPAIR ESOP HAGUS, HOLE IN STOMACH - FUNDOPLICATION. LT OOPHORECTOMY. ANTONIO Carpal Tunnel, L thyroid nodle removed. Past Anesthesia/Blood Transfusion Reactions: Previous Problems w/ Anesthesia Additional Past Anesthesia/Blood Transfusion Reaction / Comm: WOKE W/ STOMACH PAIN AFTER TRIGGER THUMB SURG. Smoking Status: Former smoker - Past Family History Mother Family Medical History: Cancer Additional Family Medical History / Comment(s): PANCREATIC CANCER Father Family Medical History: Cancer Additional Family Medical History / Comment(s): COLON CANCER Brother(s) Family Medical History: Cancer, CVA/TIA, Deep Vein Thrombosis (DVT) Additional Family Medical History / Comment(s): PROSTATE CANCER Sister(s) Family Medical History: Cancer Additional Family Medical History / Comment(s): LUNG CANCER Medications and Allergies Home Medications Medication Instructions Recorded Confirmed Type Benazepril HCl 20 mg PO DAILY 11/23/15 01/04/24 History Vit C/E/Zn/Coppr/Lutein/Zeaxan 1 each PO BID 11/23/15 01/04/24 History [Preservision Areds 2 Softgel] Docusate [Colace] 100 mg PO BID 12/27/20 01/04/24 History Omeprazole 40 mg PO DAILY 12/27/20 01/04/24 History Calcium + D 1200mg 1,200 mg PO BID 06/17/22 01/04/24 History Citalopram Hydrobromide [CeleXA] 20 mg PO DAILY 06/17/22 01/04/24 History Fluticasone Propion/Salmeterol 1 inhalation PO BID 06/17/22 01/04/24 History [Wixela 250-50 Inhub] L.acidoph,Paracasei, B.lactis 1 each PO DAILY 06/17/22 01/04/24 History [Probiotic] Potassium Gluconate 99 mg PO DAILY 06/17/22 01/04/24 History Doxylamine Succinate [Unisom] 25 mg PO HS 12/15/23 01/04/24 History Pravastatin Sodium [Pravachol] 40 mg PO HS 12/15/23 01/04/24 History busPIRone HCL [Buspirone HCl] 10 mg PO DAILY 12/15/23 01/04/24 History Calcium Carb/Magnesium Hydrox 1 tab PO DAILY 12/31/23 01/04/24 History [Rolaids Ext Str 675-135 mg Chw] Allergies Allergy/AdvReac Type Severity Reaction Status Date / Time alendronate sodium AdvReac Abdominal Verified 01/04/24 07:47 [From Fosamax] Pain codeine AdvReac Abdominal Verified 01/04/24 07:47 Pain ezetimibe [From Vytorin] AdvReac Abdominal Verified 01/04/24 07:47 Pain simvastatin [From Vytorin] AdvReac Abdominal Verified 01/04/24 07:47 Pain Physical Exam Vitals: Vital Signs Temp Pulse Pulse Resp BP Pulse Ox 01/04/24 11:45 86 16 116/73 94 L 01/04/24 11:30 92 14 114/59 94 L 01/04/24 11:17 67 14 116/59 93 L 01/04/24 11:02 86 16 114/67 97 01/04/24 10:45 87 18 109/52 96 01/04/24 10:28 97.9 F 80 16 120/58 95 01/04/24 07:52 97.5 F L 72 16 129/68 95 Intake and Output 01/03/24 01/04/24 01/04/24 22:59 06:59 14:59 Intake Total 2300 Output Total 10 Balance 2290 Intake: IV 2300 Output: Estimated Blood Loss 10 Other: Weight 62.3 kg
[2024-01-04] MEDS: IPRATROPIUM-ALBUTEROL 3 ML NEB INHALATION SCH (15:22)
[2024-01-04] MEDS: PRAVASTATIN SODIUM 40 MG TAB PO SCH (20:01)
[2024-01-04] MEDS: VIT A,C & E-LUTEIN-MINERALS 1 EACH TAB PO SCH (20:01)
[2024-01-04] MEDS: FAMOTIDINE 20 MG TAB PO SCH (20:01)
[2024-01-04] MEDS: SYMBICORT 80-4.5 MCG INHALER INHALATION SCH (20:47)
[2024-01-04] MEDS: diphenhydrAMINE 25 MG CAP PO SCH (22:41)
[2024-01-05] MEDS: PANTOPRAZOLE 40 MG TABLET PO SCH (06:47)
[2024-01-05 07:37] VITALS: BP 148/80; RESP 18; TEMP 98.2
[2024-01-05] MEDS: busPIRone HCl 10 MG TAB PO SCH (07:43)
[2024-01-05] MEDS: CITALOPRAM HYDROBROMIDE 20 MG TAB PO SCH (07:43)
[2024-01-05] MEDS: LACTOBACILLUS ACIDOPHILUS/PECT 1 EACH CAPSULE PO SCH (07:43)
[2024-01-05] MEDS: lisinopriL 20 MG TAB PO SCH (07:43)
[2024-01-05] MEDS: ENOXAPARIN 40 MG/0.4 ML SYRINGE SQ SCH (07:43)
[2024-01-05 08:47] LABS: Blood Urea Nitrogen 11.9 mg/dL (9.0-27.0); Calcium 8.2 mg/dL (8.7-10.3); Carbon Dioxide 22.6 mmol/L (21.6-31.8); Chloride 96 mmol/L (96-109); Glucose 101 mg/dL (70-110); HCT 35.9 % (37.2-46.3); HGB 11.4 g/dL (12.0-15.0); MCH 28.9 pg (27.0-32.0); MCHC 31.8 g/dL (32.0-37.0); MCV 91.1 FL (80.0-97.0); Magnesium 1.8 mg/dL (1.5-2.4); Mean Platelet Volume 9.9 FL (9.5-12.2); NRBC Per 100 WBC 0 X 10*3/uL (0.00-0.01); Platelet Count 314 X 10*3/uL (140-440); Potassium 4.2 mmol/L (3.5-5.5); RBC 3.94 X 10*6/uL (4.10-5.20); RDW 14.7 % (11.5-14.5); Sodium 129 mmol/L (135-145); WBC 11.23 X 10*3/uL (4.50-10.00)
[2024-01-05 11:30] VITALS: PULSE 76
--- NOTE | 2024-01-05 12:17 | P.DS ---
Providers Expected date of discharge: 01/05/24 Attending physician: Harsha Nina Consults: 01/04/24 10:46 Consult Physician Routine Consulting Provider: Catina Real Consult Reason/Comments: Management Do you want consulting provider notified?: Yes Primary care physician: Marshall Olmos MD Hospital Course: Discharge diagnosis 1. Recurrent hiatal hernia 2. Hyponatremia will have patient follow-up with PCP in 1 to 2 days for repeat blood work Hospital course This is a 68-year-old female who presented with a recurrent hiatal hernia. She is status post laparoscopic repair of recurrent hiatal hernia with [employer] bio mesh. Patient's pain is controlled. She is tolerating diet. She has been up and ambulating. She is having flatus. She is afebrile. She is stable for discharge. Please refer to chart for any further details. Physician Supervisor [employer] note has been reviewed by physician. Signing provider agrees with the documented findings, assessment, and plan of care. Patient Condition at Discharge: Stable Plan - Discharge Summary Discharge Rx Participant: Yes New Discharge Prescriptions: New HYDROcodone/APAP 5-325MG [[place] 5-325] 1 tab PO Q6HR PRN 3 Days #12 tab PRN Reason: Pain Continue Vit C/E/Zn/Coppr/Lutein/Zeaxan [Preservision Areds 2 Softgel] 1 each PO BID Benazepril HCl 20 mg PO DAILY Citalopram Hydrobromide [CeleXA] 20 mg PO DAILY Potassium Gluconate 99 mg PO DAILY L.acidoph,Paracasei, B.lactis [Probiotic] 1 each PO DAILY Pravastatin Sodium [Pravachol] 40 mg PO HS busPIRone HCL 10 mg PO DAILY Omeprazole 40 mg PO DAILY Docusate [Colace] 100 mg PO BID Fluticasone Propion/Salmeterol [Wixela 250-50 Inhub] 1 inhalation PO BID Calcium + D 1200mg 1,200 mg PO BID Doxylamine Succinate [Unisom] 25 mg PO HS Calcium Carb/Magnesium Hydrox [Rolaids Ext Str 675-135 mg Chw] 1 tab PO DAILY Discharge Medication List Benazepril HCl 20 mg PO DAILY 11/23/15 [History] Vit C/E/Zn/Coppr/Lutein/Zeaxan [Preservision Areds 2 Softgel] 1 each PO BID 11/23/15 [History] Docusate [Colace] 100 mg PO BID 12/27/20 [History] Omeprazole 40 mg PO DAILY 12/27/20 [History] Calcium + D 1200mg 1,200 mg PO BID 06/17/22 [History] Citalopram Hydrobromide [CeleXA] 20 mg PO DAILY 06/17/22 [History] Fluticasone Propion/Salmeterol [Wixela 250-50 Inhub] 1 inhalation PO BID 06/17/22 [History] L.acidoph,Paracasei, B.lactis [Probiotic] 1 each PO DAILY 06/17/22 [History] Potassium Gluconate 99 mg PO DAILY 06/17/22 [History] Doxylamine Succinate [Unisom] 25 mg PO HS 12/15/23 [History] Pravastatin Sodium [Pravachol] 40 mg PO HS 12/15/23 [History] busPIRone HCL 10 mg PO DAILY 12/15/23 [History] Calcium Carb/Magnesium Hydrox [Rolaids Ext Str 675-135 mg Chw] 1 tab PO DAILY 12/31/23 [History] HYDROcodone/APAP 5-325MG [[place] 5-325] 1 tab PO Q6HR PRN 3 Days #12 tab 01/05/24 [Rx] Follow up Appointment(s)/Referral(s): Harsha Nina MD [STAFF PHYSICIAN] - 1 Week Marshall Olmos MD [Primary Care Provider] - 1-2 Days Activity/Diet/Wound Care/Special Instructions: No driving while taking [place] No lifting over 10 pounds Shower daily. No soaking or tub baths for 2 weeks Very light activity until you are reevaluated at your follow up appointment with your surgeon Stay on a full liquid diet for the next 2 weeks No straws or carbonated beverages Follow up with PCP to have sodium level rechecked in 1-2 days Discharge Disposition: HOME SELF-CARE
--- NOTE | 2024-01-05 13:58 | P.PN ---
Subjective Progress Note Date: 01/05/24 Hospital Course: Patient is a pleasant 68-year-old female with a past medical history of COPD not home oxygen dependent, hypertension, hyperlipidemia, macular degeneration, and GERD. She is currently admitted under general surgery team status post laparoscopic repair of recurrent hiatal hernia. We were consulted for medical management throughout hospitalization. Physical exam: Patient was seen and fully evaluated at bedside this morning. She was completely weaned off oxygen and maintaining SpO2 of 95% on room air. She reports mild postoperative pain worse with a deep breath, but reports feeling significantly better than she did yesterday. She denies having any nausea or vomiting and denies any other complaints at this time.. Vital signs reviewed and stable. General: Nontoxic, no distress and appears stated age. Derm: Skin warm and dry, normal coloration for ethnicity. Head: Atraumatic, normocephalic and symmetric. Eyes: EOM's intact, no lid lag, and anicteric sclera Mouth: no lip lesions, mucus membranes moist Cardiovascular: regular rate and rhythm with normal S1S2, no murmur, positive posterior tibial pulses bilaterally, and cap refill < 2 seconds. Lungs: Respirations even, regular, and unlabored on room air. Lungs CTA bilaterally, no rhonchi, no rales, no wheezing, and no accessory muscle usage. Abdominal: soft, nontender to palpation, no guarding, no appreciable organomegaly. Laparoscopic incisions intact. Ext: ROM intact. No gross muscle atrophy, no edema, no contractures Neuro: Speech clear, face symmetrical and CN II-XII grossly intact with no noted focal neuro deficits Psych: Alert and oriented to person, place, time, and situation. Appropriate and pleasant affect. Assessment and Plan of Care: Status post laparoscopic repair of recurrent hiatal hernia -Management per primary admitting general surgery team including DVT prophylaxis, pain management, wound/dressing management, and advancement of t. -Order placed for postoperative labs including CBC, BMP, and magnesium. Acute hypoxic respiratory failure, postoperative hypoxia. Resolved. COPD, not on home oxygen -Patient successfully weaned off of oxygen and maintaining SpO2 of 95% on room air -Telemetry monitoring. -Monitor pulse-oximetry -Duonebs scheduled 4 times daily and as needed for SOB and/or wheezing -Incentive Spirometry, encourage use 10-15 times hourly while awake. -Continue Symbicort 80-4.5 mcg inhaler 2 puffs twice daily and Wixela 250-50 mg inhaler 1 puff twice daily. Hypertension. Continue daily medication regimen with benazepril hydro chlorothiazide 20 mg daily. Hyperlipidemia. Continue daily medication regimen with pravastatin 40 mg nightly. GERD. Continue daily medication regimen with omeprazole 40 mg daily. Anxiety with depression. Continue daily medication regimen with Celexa 20 mg daily and BuSpar 10 mg daily. Data reviewed: Vital signs reviewed and stable. Blood pressure 148/80, heart rate 71, respiratory rate 18, temp 98.2 F, and SpO2 of 95% on room air. Postoperative labs reviewed. CBC showing mild leukocytosis with WBC count of 11.23 and normocytic anemia with hemoglobin of 11.4. BMP showing mild hyponatremia with sodium of 129 otherwise normal findings. Blood glucose 101. Magnesium 1.8. Thank you for allowing us to participate in the care of this pleasant patient. Do not hesitate to contact us with questions. Someone can be reached from the [facility] hospitalist group all hours of the day at [phone] or via [employer]. Patient was seen independently by Nurse Practitioner. This document was prepared using [employer] dictation software. Please allow for errors in gold blower while rare they do occur. Johnny Claros NP rendered care for this patient independently, reviewed the findings and plan as documented in the note above. I did not physically speak with or examine the patient on this date. Objective - Vital Signs Vital signs: Vital Signs Temp 98.2 F 01/05/24 07:00 Pulse 78 01/05/24 08:03 Resp 18 01/05/24 07:00 BP 148/80 01/05/24 07:00 Pulse Ox 95 01/05/24 07:56 FiO2 Intake & Output 01/04/24 01/05/24 01/05/24 18:59 06:59 18:59 Intake Total 2300 1500 450 Output Total 10 Balance 2290 1500 450 Weight 62.3 kg Intake: IV 2300 Intake, IV Titration 1500 Amount Lactated Ringers 1,000 ml 1500 @ 125 mls/hr IV .Q8H LEYLA Rx#:[id number] Oral 450 Output: Estimated Blood Loss 10 Other: # Voids 1 3 - Labs CBC & Chem 7: 01/05/24 02:47 01/05/24 02:47
== END 2024-01-05 13:01 | disposition home or self-care (01) ==
LOC: OR 07:09 → 4SSUR 11:16 → OR 01-05 13:01
PROVIDERS: ATTEND Surgery
DX: K44.9 Diaphragmatic hernia without obstruction or gangrene (principal); J95.821 Acute postprocedural respiratory failure; K21.00 Gastro-esophageal reflux disease with esophagitis, without bleeding; K22.70 Barrett's esophagus without dysplasia; I10 Essential (primary) hypertension; E78.5 Hyperlipidemia, unspecified; J44.9 Chronic obstructive pulmonary disease, unspecified; M81.0 Age-related osteoporosis without current pathological fracture; F41.8 Other specified anxiety disorders; E87.1 Hypo-osmolality and hyponatremia; G89.18 Other acute postprocedural pain; Z79.51 Long term (current) use of inhaled steroids; Z79.899 Other long term (current) drug therapy; Z87.891 Personal history of nicotine dependence; Z88.5 Allergy status to narcotic agent; Z88.8 Allergy status to other drugs, medicaments and biological substances; Z80.0 Family history of malignant neoplasm of digestive organs
CPT/HCPCS: 94640 ×4; 94760; 80048; 83735; 85027; 43282; C1781; J2250; J1644; J1100; J2710; J0690 ×2; J2405; J2003; J1650; J3010; J1171 ×2; J1885 ×2; J2704; J1596

== ENCOUNTER → 2024-01-20 | Outpatient (CLI) | payer MEDICARE, OTHER ==
--- NOTE | 2024-01-20 12:13 | XR ---
EXAMINATION TYPE: XR shoulder complete LT DATE OF EXAM: 01/20/2024 12:08 PM COMPARISON: None. CLINICAL INDICATION: Female, 68 years old with history of SHOULDER PAIN, TECHNIQUE: XR shoulder complete LT 3 view(s) obtained. FINDINGS: The humeral head articulates with the glenoid. The acromio-clavicular junction is normal. No acute fractures or dislocations are evident. A follow up study can be performed 7-10 days from acute trauma for continued pain. MRI can be perfor med if soft tissue evaluation would be of benefit. IMPRESSION: 1. No acute osseous shoulder abnormality. [facility], , 01/20/2024 12:11 PM
== END | disposition home or self-care (01) ==
LOC: RADXRMAIN 11:20
PROVIDERS: ATTEND Internal Medicine
DX: M25.512 Pain in left shoulder (principal); G89.29 Other chronic pain

== ENCOUNTER → 2024-01-20 | Outpatient (CLI) | payer MEDICARE, OTHER ==
[2024-01-20 16:20] LABS: ALT 38 U/L (8-44); AST 29 U/L (13-35); Albumin 4.2 g/dL (3.8-4.9); Albumin/Globulin Ratio 1.45 Ratio (1.60-3.17); Alkaline Phosphatase 223 U/L (41-126); Blood Urea Nitrogen 14.8 mg/dL (9.0-27.0); Calcium 9.6 mg/dL (8.7-10.3); Carbon Dioxide 22.8 mmol/L (21.6-31.8); Chloride 101 mmol/L (96-109); Globulin 2.9 g/dL (1.6-3.3); Glucose 89 mg/dL (70-110); Sodium 137 mmol/L (135-145); T4, Free (Free Thyroxine) 1.13 ng/dL (0.80-1.80); Total Bilirubin 0.3 mg/dL (0.3-1.2); Total Protein 7.1 g/dL (6.2-8.2)
== END | disposition home or self-care (01) ==
LOC: LABWHC1 11:16
PROVIDERS: ATTEND Internal Medicine
DX: E55.9 Vitamin D deficiency, unspecified (principal); E04.2 Nontoxic multinodular goiter
CPT/HCPCS: 36415; 80053; 82306; 84439; 84443

== ENCOUNTER 2024-01-25 21:23 | Emergency (ER) | payer MEDICARE, OTHER ==
[2024-01-25 21:28] VITALS: TEMP 97.8
[2024-01-25 22:00] LABS: Basophils # (A) 0.1 k/uL (0-0.2); Basophils % (A) 1 %; Eosinophils # (A) 0.6 k/uL (0-0.7); Eosinophils % (A) 6 %; HCT 42.6 % (34.0-46.0); HGB 13.7 gm/dL (11.4-16.0); Lymphocytes % (A) 26 %; MCHC 32.2 g/dL (31.0-37.0); MCV 90.1 fL (80.0-100.0); Mean Platelet Volume 7.2; Monocytes # (A) 0.9 k/uL (0-1.0); Monocytes % (A) 7 %; Neutrophils # (A) 6.8 k/uL (1.3-7.7); Neutrophils % (A) 59 %; Platelet Count 439 k/uL (150-450); RBC 4.73 m/uL (3.80-5.40); RDW 14.5 % (11.5-15.5); WBC 11.6 k/uL (3.8-10.6)
[2024-01-25 22:08] LABS: ALT 32 U/L (4-34); AST 30 U/L (14-36); African American GFR (CKD) >90 (>60 ml/min/1.73 sqM); Albumin 4.3 g/dL (3.5-5.0); Alkaline Phosphatase 189 U/L (38-126); Anion Gap 5 mmol/L; Blood Urea Nitrogen 15 mg/dL (7-17); Calcium 9.6 mg/dL (8.4-10.2); Carbon Dioxide 32 mmol/L (22-30); Chloride 100 mmol/L (98-107); Glucose 103 mg/dL (74-99); Non-African American GFR(CKD) 90 (>60 ml/min/1.73 sqM); Potassium 4.6 mmol/L (3.5-5.1); Sodium 137 mmol/L (137-145); Total Bilirubin 0.2 mg/dL (0.2-1.3); Total Protein 7.4 g/dL (6.3-8.2)
[2024-01-25] MEDS ORDERED: RX INFO: IV CONTRAST WAS GIVEN 1 EACH MISC MISCELLANE PRN (23:39)
--- NOTE | 2024-01-26 00:01 | ED ---
Chest Pain HPI - General Chief Complaint: Chest Pain Stated Complaint: Chest pain,Shoulder pain Time Seen by Provider: 01/25/24 21:25 Source: patient Mode of arrival: ambulatory Limitations: no limitations - History of Present Illness Initial Comments: 68-year-old female presents emergency department reporting left chest pain which radiates into her left shoulder. States that she had hiatal hernia surgery done 4 weeks ago and the pain started after. She followed up with her primary care doctor and had x-rays performed which were negative. States that the pain is becoming more constant and more severe in nature. She denies nausea or vomiting. Has been eating without difficulty. She denies any abdominal pain. No history of cardiac disease. No history of DVT or PE. No other alleviating, precipitating or modifying factors - Related Data Home Medications Medication Instructions Recorded Confirmed Benazepril HCl 20 mg PO DAILY 11/23/15 01/04/24 Vit C/E/Zn/Coppr/Lutein/Zeaxan 1 each PO BID 11/23/15 01/04/24 [Preservision Areds 2 Softgel] Docusate [Colace] 100 mg PO BID 12/27/20 01/04/24 Omeprazole 40 mg PO DAILY 12/27/20 01/04/24 Calcium + D 1200mg 1,200 mg PO BID 06/17/22 01/04/24 Citalopram Hydrobromide [CeleXA] 20 mg PO DAILY 06/17/22 01/04/24 Fluticasone Propion/Salmeterol 1 inhalation PO BID 06/17/22 01/04/24 [Wixela 250-50 Inhub] L.acidoph,Paracasei, B.lactis 1 each PO DAILY 06/17/22 01/04/24 [Probiotic] Potassium Gluconate 99 mg PO DAILY 06/17/22 01/04/24 Doxylamine Succinate [Unisom] 25 mg PO HS 12/15/23 01/04/24 Pravastatin Sodium [Pravachol] 40 mg PO HS 12/15/23 01/04/24 busPIRone HCL 10 mg PO DAILY 12/15/23 01/04/24 Calcium Carb/Magnesium Hydrox 1 tab PO DAILY 12/31/23 01/04/24 [Rolaids Ext Str 675-135 mg Chw] Previous Rx's Medication Instructions Recorded HYDROcodone/APAP 5-325MG [[place] 1 tab PO Q6HR PRN 3 Days #12 tab 01/05/24 5-325] Lidocaine 5% Patch [Lidoderm] 1 patch TOPICAL DAILY #30 patch 01/26/24 traMADol HCl [Ultram] 50 mg PO Q6H PRN #20 tab 01/26/24 Allergies Allergy/AdvReac Type Severity Reaction Status Date / Time alendronate sodium AdvReac Abdominal Verified 01/25/24 21:28 [From Fosamax] Pain codeine AdvReac Abdominal Verified 01/25/24 21:28 Pain ezetimibe [From Vytorin] AdvReac Abdominal Verified 01/25/24 21:28 Pain simvastatin [From Vytorin] AdvReac Abdominal Verified 01/25/24 21:28 Pain Review of Systems ROS Statement: Those systems with pertinent positive or pertinent negative responses have been documented in the HPI. ROS Other: All systems not noted in ROS Statement are negative. Past Medical History Past Medical History: COPD, Eye Disorder, GERD/Reflux, Hearing Disorder / Deafne ss, Hypertension Additional Past Medical History / Comment(s): POSS "HEAT STROKE" IN 2016. LT EYE MACULAR DEGENERATION; BEING WATCHED FOR GLAUCOMA. HX HOLE IN STOMACH, HAD REPAIR ESOPHAGUS. OSTEOPOROSIS. History of Any Multi-Drug Resistant Organisms: None Reported Past Surgical History: Appendectomy, Orthopedic Surgery Additional Past Surgical History / Comment(s): RT TRIGGER THUMB. REPAIR ESOPHAGUS, HOLE IN STOMACH - FUNDOPLICATION. LT OOPHORECTOMY. ANTONIO Carpal Tunnel, L thyroid nodle removed. Past Anesthesia/Blood Transfusion Reactions: Previous Problems w/ Anesthesia Additional Past Anesthesia/Blood Transfusion Reaction / Comment(s): WOKE W/ STOMACH PAIN AFTER TRIGGER THUMB SURG. Past Psychological History: Anxiety Smoking Status: Former smoker - Past Family History Mother Family Medical History: Cancer Additional Family Medical History / Comment(s): PANCREATIC CANCER Father Family Medical History: Cancer Additional Family Medical History / Comment(s): COLON CANCER Brother(s) Family Medical History: Cancer, CVA/TIA, Deep Vein Thrombosis (DVT) Additional Family Medical History / Comment(s): PROSTATE CANCER Sister(s) Family Medical History: Cancer Additional Family Medical History / Comment(s): LUNG CANCER General Exam Limitations: no limitations General appearance: alert, in no apparent distress Head exam: Present: atraumatic, normocephalic, normal inspection Eye exam: Present: normal appearance, PERRL, EOMI. Absent: scleral icterus, conjunctival injection, periorbital swelling ENT exam: Present: normal exam, mucous membranes moist Neck exam: Present: normal inspection. Absent: tenderness, meningismus, lymphadenopathy Respiratory exam: Present: normal lung sounds bilaterally, chest wall tenderness (Patient has significant tenderness to palpation of the left posterior chest wall near the scapula at level 34. Muscle is indurated. She has 2+ radial and ulnar pulses. Full normal range of motion is slightly painful but patient can achieve higher than 90 degrees of flexion and abduction). Absent: respiratory distress, wheezes, rales, rhonchi, stridor Cardiovascular Exam: Present: regular rate, normal rhythm, normal heart sounds. Absent: systolic murmur, diastolic murmur, rubs, gallop, clicks GI/Abdominal exam: Present: soft, normal bowel sounds. Absent: distended, tenderness, guarding, rebound, rigid Extremities exam: Present: normal inspection, full ROM, normal capillary refill. Absent: tenderness, pedal edema, joint swelling, calf tenderness Back exam: Present: other (tenderness to the left scapula) Neurological exam: Present: alert, oriented X3, CN II-XII intact Psychiatric exam: Present: normal affect, normal mood Skin exam: Present: warm, dry, intact, normal color. Absent: rash Course Vital Signs 01/25/24 01/26/24 01/26/24 21:25 00:12 02:24 Temperature 97.8 F Pulse Rate 75 76 80 Respiratory 16 18 18 Rate Blood Pressure 183/98 136/90 140/80 O2 Sat by Pulse 96 96 99 Oximetry Chest Pain MDM - MDM Was pt. sent in by a medical professional or institution (, PA, [facility], urgent care, hospital, or group home...) When possible be specific @ -No Did you speak to anyone other than the patient for history (EMS, parent, family, police, friend...)? What history was obtained from this source @ -No Did you review nursing and triage notes (agree or disagree)? Why? @ -I reviewed and agree with nursing and triage notes Were old charts reviewed (outside hosp., previous admission, EMS record, old EKG, old radiological studies, urgent care reports/EKG's, group home records)? Report findings @ -I reviewed the procedure notes from the patient's hiatal hernia surgery completed on [address] Nina Differential Diagnosis (chest pain, altered mental status, abdominal pain women, abdominal pain men, vaginal bleeding, weakness, fever, dyspnea, syncope, headache, dizziness, GI bleed, back pain, seizure, CVA, palpatations, mental health, musculoskeletal)? @ -Differential Musculoskeletal Muscular strain, contusion, ligament sprain, fracture, arthritis, septic arthritis, bursitis, cellulitis, muscle spasm, nerve compression, DVT, arterial occlusion, herpes zoster, electrolyte abnormality, tumor.... This is not meant to be in all inclusive list EKG interpreted by me (3pts min.). @ -Yes and demonstrates sinus rhythm with a rate of 74. HI interval 186. QRS 101. QTc of 409. No acute ST segment elevations. Mild ST depression 2, 3, aVF X-rays interpreted by me (1pt min.). @ -Yes and demonstrates no acute process CT interpreted by me (1pt min.). @ -Yes and demonstrates no acute process. No PE U/S interpreted by me (1pt. min.). @ -None done What testing was considered but not performed or refused? (CT, X-rays, U/S, labs)? Why? @ -None What meds were considered but not given or refused? Why? @ -None Did you discuss the management of the patient with other professionals (professionals i.e. , PA, [facility], lab, RT, psych nurse, public health social worker, book cleaner, teacher, chief sustainability officer, supportive employment case manager)? Give summary @ -No Was smoking cessation discussed for >3mins.? @ -No Was critical care preformed (if so, how long)? @ -No Were there social determinants of health that impacted care today? How? (Homelessness, low income, unemployed, alcoholism, drug addiction, transportat ion, low edu. Level, literacy, decrease access to med. care, fci, rehab)? @ -No Was there de-escalation of care discussed even if they declined (Discuss DNR or withdrawal of care, Hospice)? DNR status @ -No What co-morbidities impacted this encounter? (DM, HTN, Smoking, COPD, CAD, Cancer, CVA, ARF, Chemo, Hep., AIDS, mental health diagnosis, sleep apnea, morbid obesity)? @ -Hiatal hernia Was patient admitted / discharged? Hospital course, mention meds given and route, prescriptions, significant lab abnormalities, going to OR and other pertinent info. @ -Upon arrival patient seen and evaluated in bed 18. Thorough history and physical exam was performed. Twelve-lead EKG was obtained. Patient placed on continuous pulse ox and cardiac monitoring. Physical exam does demonstrate that the pain seems to be reproducible upon palpation and may be musculoskeletal in nature however due to patient's recent surgery, postop complication must be considered. Patient was agreeable to a CT of the chest which does not demonstrate any abnormal postop findings. I did discuss the results with the patient. I did discuss treatment options to include pain medications, lidocaine patches, heating pads and OMM. Patient will continue to follow-up with her primary care doctor who is already aware of her condition. She states that she is scheduled for physical therapy. She is to return to the emergency department for any new or worsening symptoms. Patient agreeable to plan was discharged home in stable condition Undiagnosed new problem with uncertain prognosis? @ -Yes Drug Therapy requiring intensive monitoring for toxicity (Heparin, Nitro, Insulin, Cardizem)? @ -No Were any procedures done? @ -No Diagnosis/symptom? @ -Acute left scapular pain, status post hiatal hernia Acute, or Chronic, or Acute on Chronic? @ -Acute Uncomplicated (without systemic symptoms) or Complicated (systemic symptoms)? @ -Complicated Side effects of treatment? @ -No Exacerbation, Progression, or Severe Exacerbation? @ -No Poses a threat to life or bodily function? How? (Chest pain, [place], [place], pneumonia, PE, COPD, DKA, ARF, appy, cholecystitis, CVA, Diverticulitis, Homicidal, Suicidal, threat to staff... and all critical care pts) @ -No Disposition Clinical Impression: Pain of left scapula Disposition: HOME SELF-CARE Condition: Stable Instructions (If sedation given, give patient instructions): Shoulder Pain (ED) Additional Instructions: Use the medications as they are prescribed. Follow-up with your doctor in 2-4 days. I do recommend the physical therapy. Also consider OMM treatment of your pain - I have given you the name of several OMM doctors in the [place] area. Return for any new or worsening symptoms Dr. Delvin Lindo Prescriptions: Lidocaine 5% Patch [Lidoderm] 1 patch TOPICAL DAILY #30 patch traMADol HCl [Ultram] 50 mg PO Q6H PRN #20 tab PRN Reason: Pain Is patient prescribed a controlled substance at d/c from ED?: Yes When asked, does pt state using other controlled substances?: No If prescribed controlled substance>3 days was MAPS reviewed?: Prescribed <3 Days Referrals: Marshall Olmos MD [Primary Care Provider] - 1-2 days Eliceo Morton DO [REFERRING] - 1-2 days Nabila Zhu DO [REFERRING] - 1-2 days Araseli Gipson DO [REFERRING] - 1-2 days Time of Disposition: 01:59
[2024-01-26] MEDS: MORPHINE SULFATE 4 MG/ML SYRINGE IVP STA (00:11)
[2024-01-26 00:13] VITALS: RESP 18
--- NOTE | 2024-01-26 00:31 | XR ---
EXAM: XR Chest, 2 Views CLINICAL HISTORY: ITS.REASON XR Reason: Chest Pain TECHNIQUE: Frontal and lateral views of the chest. COMPARISON: No relevant prior studies available. FINDINGS: Lungs: Unremarkable. No consolidation. Pleural space: Unremarkable. No pneumothorax. Heart: Unremarkable. No cardiomegaly. Mediastinum: Unremarkable. Normal mediastinal contour. Bones/joints: Unremarkable. No acute fracture. IMPRESSION: Normal chest x-rays.
--- NOTE | 2024-01-26 01:41 | CT ---
EXAM: CT Chest With Intravenous Contrast CLINICAL HISTORY: ITS.REASON CT Reason: left shoulder pain s/p hiatal hernia repair TECHNIQUE: Axial computed tomography images of the chest with intravenous contrast. CTDI is 6.1 mGy and DLP is 275 mGy-cm. This CT exam was performed using one or more of the following dose reduction techniques: automated exposure control, adjustment of the mA and/or kV according to patient size, and/or use of iterative reconstruction technique. COMPARISON: No relevant prior studies available. FINDINGS: Lungs: Mild centrilobular emphysema. No mass. No consolidation. Pleural space: Unremarkable. No pneumothorax. No significant effusion. Heart: Unremarkable. No cardiomegaly. No significant pericardial effusion. No significant coronary artery calcifications. Bones/joints: Unremarkable. No acute fracture. No dislocation. Soft tissues: Unremarkable. Vasculature: Unremarkable. No thoracic aortic aneurysm. No pulmonary embolism. Lymph nodes: Unremarkable. No enlarged lymph nodes. Liver: Hepatic steatosis. Gallbladder and bile ducts: Cholecystectomy. IMPRESSION: 1. No pulmonary embolism. 2. Mild centrilobular emphysema.
[2024-01-26] MEDS: LIDOCAINE 4% PATCH TOPICAL ONE (02:19)
[2024-01-26] MEDS: traMADol 50 MG STARTER PACK 3 TAB BTL PO STA (02:20)
[2024-01-26 02:25] VITALS: BP 140/80; PULSE 80
== END 2024-01-26 02:25 | disposition home or self-care (01) ==
LOC: EC 21:23
DX: M25.512 Pain in left shoulder (principal); K44.9 Diaphragmatic hernia without obstruction or gangrene; Z88.5 Allergy status to narcotic agent; Z88.8 Allergy status to other drugs, medicaments and biological substances; Z87.891 Personal history of nicotine dependence; Z90.49 Acquired absence of other specified parts of digestive tract
CPT/HCPCS: 36415; 71046; 71260; 80053; 83735; 84484; 85025; 93005; 96374; 99285

== ENCOUNTER → 2024-01-26 | Outpatient (CLI) | payer MEDICARE, OTHER ==
--- NOTE | 2024-01-26 10:58 | US ---
EXAMINATION TYPE: US thyroid st tissue head/neck DATE OF EXAM: 01/26/2024 COMPARISON: NONE CLINICAL INDICATION: Female, 68 years old with history of E04.2 NONTOXIC MULTINODULAR GOITER; thyroid nodules left side remove in November. TECHNIQUE: Grayscale and color Doppler imaging of the thyroid gland. FINDINGS: GLAND SIZE: Right Lobe: 5.7 x 2.9 x 2.2 cm Overall Parenchyma: heterogeneous Left Lobe: Surgically absent Isthmus Thickness: 0.7 cm NODULES RIGHT: # of nodules measured on right: 2 1. 0.9 X 0.6 x 0.9 cm, lower , Prior size: 1.1 x .8 x .9 cm TIRADS Score: 4 TIRADS Category 4: Composition: Solid or almost completely solid (2 points). Echogenicity: Hypoechoic (2 points). Shape: Wider than tall (0 points). Margin: Smooth (0 points). Echogenic foci: None or large comet-tail artifacts (0 points) Recommendation: If >1.5cm: FNA; If >1cm: Follow up at 1,2, 3,5 years 2. 1.7 X 1.5 x 1.8 cm, lower , Prior size: 1.3 x 1.0 x 1.1 cm TIRADS Score: 4 TIRADS Category 4: Composition: Solid or almost completely solid (2 points). Echogenicity: Hypoechoic (2 points). Shape: Wider than tall (0 points). Margin: Smooth (0 points). Echogenic foci: None or large comet-tail artifacts (0 points) Recommendation: If >1.5cm: FNA; If >1cm: Follow up at 1,2, 3,5 years LEFT: # of nodules measured on left: 0 ISTHMUS: # of nodules measured in the isthmus: 0 Bilateral neck scanned, no evidence of lymphadenopathy. IMPRESSION: Right thyroid nodules, the largest of which meets criteria for fine-needle aspiration if not already performed. [facility], , 01/26/2024 10:56 AM
== END | disposition home or self-care (01) ==
LOC: RADUSWWP 08:50
PROVIDERS: ATTEND Internal Medicine
DX: E04.2 Nontoxic multinodular goiter (principal)
CPT/HCPCS: 76536

== ENCOUNTER → 2024-02-02 | Outpatient (CLI) | payer MEDICARE, OTHER ==
[~2024-02-02] MED LIST changes: -LACTATED RINGERS 1,000 ML IV SCH; -LIDOCAINE 1% (10MG/ML) FOR IV START INTRADERMA PRN; +SODIUM CHLORIDE 0.9% 250 ML in EMPTY BAG 1 BAG IV PRN
[2024-02-02 13:05] VITALS: BP 125/85; PULSE 87; RESP 16; TEMP 97.9
[2024-02-02] MEDS: ZOLEDRONIC ACID 5 MG in SODIUM CHLORIDE 0.9% 100 ML IV NR (13:06)
[2024-02-02] MEDS: SODIUM CHLORIDE 0.9% 500 ML 500 ML in EMPTY BAG 1 BAG IV PRN (13:07)
== END ==
LOC: PROCWHC3 12:54
PROVIDERS: ATTEND Internal Medicine
DX: M81.0 Age-related osteoporosis without current pathological fracture (principal)
CPT/HCPCS: 96365; J3489

== ENCOUNTER → 2024-03-08 | Outpatient (CLI) | payer MEDICARE, OTHER ==
--- NOTE | 2024-03-08 10:14 | XR ---
EXAMINATION TYPE: XR lumbosacral spine min 4V DATE OF EXAM: 03/08/2024 10:06 AM COMPARISON: None. CLINICAL INDICATION: Female, 68 years old with history of M54.41 LUMBAGO WITH SCIATICA, RIGHT SIDE, p ain TECHNIQUE: 5 view(s) obtained. FINDINGS: There are 5 lumbar-type vertebral bodies. Pedicles are intact. No spondylolytic defects are evident. Mild facet degenerative changes present L5-S1 bilaterally. Disc heights are preserved. Vertebral body heights are preserved. Alignment appears normal. There may be a 0.5 cm calcification just superior to the L1 left transverse process may be a proximal ureteral stone. Note is made of vascular calcifications within the aorta. IMPRESSION: 1. Mild degenerative changes within the lumbar spine. 2. Clinical consideration for proximal left ureteral stone [facility], , 03/08/2024 10:12 AM
== END | disposition home or self-care (01) ==
LOC: RADXRMAIN 09:45
PROVIDERS: ATTEND Family Medicine
DX: M47.816 Spondylosis without myelopathy or radiculopathy, lumbar region (principal); M54.41 Lumbago with sciatica, right side; N20.1 Calculus of ureter
CPT/HCPCS: 72110

== ENCOUNTER → 2024-05-03 | Outpatient (CLI) | payer MEDICARE, OTHER ==
--- NOTE | 2024-05-03 12:52 | XR ---
EXAMINATION TYPE: XR Hip Complete RT DATE OF EXAM: 05/03/2024 11:35 AM COMPARISON: None. CLINICAL INDICATION: Female, 68 years old with history of M25.551 RIGHT HIP PAIN, pain TECHNIQUE: 2 view(s) obtained. FINDINGS: Femoral head articulates with the acetabulum. No acute fracture or dislocation evident. Joint spaces preserved. Follow up exams can be performed 7-10 days from acute trauma for continued pain. IMPRESSION: 1. No acute osseous abnormality right hip [facility], , 05/03/2024 12:50 PM
== END | disposition home or self-care (01) ==
LOC: RADXRMAIN 11:13
PROVIDERS: ATTEND Internal Medicine
DX: M25.551 Pain in right hip (principal)
CPT/HCPCS: 73502

== ENCOUNTER → 2024-05-21 | Outpatient (CLI) | payer MEDICARE, OTHER ==
--- NOTE | 2024-05-21 10:21 | MR ---
INDICATION: Patient age:Female; 69 years old; Reason for study: M54.12 radiculopathy; PHH. COMPARISON: No direct comparisons. TECHNIQUE: Multi planar, multi sequence imaging was performed of the cervical spine. No Gadolinium wa s given. FINDINGS: Alignment: The cervical vertebral bodies have preserved heights. Mild retrolisthesis of C4 on C5. Bones: T1/T2 hyperintense benign bone islands within the T3 and T4 vertebral bodies. No abnormal STI R signal. Anterior osteophytosis at C4-C6. Cord: The spinal cord is unremarkable with regards to their signal intensity and morphology. Discs: Multilevel disc desiccation is present. C2-C3: No significant disc pathology. The spinal canal is patent. No neural foraminal stenosis. C3-C4: No significant disc pathology. The spinal canal is patent. No neural foraminal stenosis. C4-C5: Broad-based disc bulge with mild effacement of the anterior thecal sac. Mild central canal adrian rowing. Uncovertebral joint hypertrophy with minimal bilateral neural foraminal narrowing. C5-C6: Broad-based disc bulge with minimal effacement of the anterior thecal sac. Mild central canal narrowing. No neural foraminal stenosis. C6-C7: Posterior disc osteophyte complex with right paracentral location. This results in moderate ef facement of anterior thecal sac. Mild central canal narrowing. Right-sided facet arthropathy. Mild r ight neural foraminal narrowing. The left neural foramen is patent. C7-T1: No significant disc pathology. The spinal canal is patent. No neural foraminal stenosis. Other: None. IMPRESSION: 1. No evidence for disc herniation or significant spinal canal stenosis. 2. Mild multilevel disc degeneration with associated osteoarthritic changes as described above. [facility], , 05/21/2024 10:19 AM
== END | disposition home or self-care (01) ==
LOC: RADMRIMAIN 09:10
PROVIDERS: ATTEND Surgery
DX: M47.22 Other spondylosis with radiculopathy, cervical region (principal); M50.121 Cervical disc disorder at C4-C5 level with radiculopathy; M99.71 Connective tissue and disc stenosis of intervertebral foramina of cervical region
CPT/HCPCS: 72141

== ENCOUNTER → 2024-05-26 | Outpatient (CLI) | payer MEDICARE, OTHER ==
[2024-05-26 11:05] VITALS: BP 134/89; PULSE 82; RESP 16; TEMP 96.9
--- NOTE | 2024-05-26 14:04 | P.PAINPG ---
PQRS Measure Charge Sheet Comment: HISTORY OF PRESENT ILLNESS: A 69 yr old female as a referral from Dr Reveles presents today w severe and chronic R hip pain secondary to R Sacroiliitis for evaluation. Pt states pain level is provoked at 8 /10 in intensity, constant, localized in the R lumbosacral spine, predominantly axial, throbbing in character w occasional shooting pain towards the R buttock. Pain is provoked by sitting for periods > 15 min. Pain is alleviated by PT x 6 wks which ended in Apr 2024, physician guided home stretches daily since Apr 2024, heat, medications, repositioning and rest . Oswestry axial pain score at 29. PMH: OA, COPD, L Macular Degeneration, GERD, [place], HTN, OP, Anxiety PSH: Appendectomy, R Trigger Thumb Repair, Fundoplication, L Oophorectomy, BL CTR, L Thyroidectomy SH: Former tobacco user, No ETOH use, No illicit drug use FH: Mo- Pancreatic olon CA. Fa- Colon CA. Bro- Prostate CA. Sis- Lung CA All: See list Meds: See list incl Tyl REVIEW OF ORGAN SYSTEMS: CONSTITUTIONAL: No fevers or chills. No recent weight loss. NEUROLOGICAL: + numbness and tingling along the distal extremities. No seizure disorders or headaches. MUSCULOSKELETAL: + pain PSYCHIATRIC: Denies current depression or suicidal thoughts. Physical Examinations : Constitutional : Cooperative , not in acute distress . Neurologic : Cranial nerve II to XII intact. No focal neurological deficits. Psychiatric : alert & oriented x 3. Matching mood & appropriate affect. Judgment & insight intact. Musculoskeletal : Cervical Spine Motor strength in the deltoid and biceps: Normal right side. Normal Left side Motor strength biceps and the wrist extensors: Normal right side . Normal left side Motor strength in the triceps muscle: Normal right side. Normal left side Deep tendon reflexes: Normal at the biceps. Normal at Brachioradialis. Normal at triceps Vertebral body tenderness to deep palpation over Cervical facet loading test: positive bilaterally Spurling test: positive bilaterally Neck distraction test: positive bi laterally Mike sign: positive bilaterally Lumbar spine Motor strength lower extremities ,thigh and legs 5/5 Right side , 5/5 Left side Deep tendon reflexes : Normal Knee Jerk. Normal Ankle Jerk Vertebral body tenderness over Delgado Test positive Lumbar facet Loading Test: positive Right / positive Left Range of motion of the lumbar spine Flexion 30 degrees, extension 10 degrees Straight Leg Raise test: Left/ Right positive at degrees Ioana test: positive right / positive left. Severe tenderness over the Sacroiliac joint on the Right / Left sides Gaenslen test: positive bilaterally Seated flexion test: positive bilaterally. Sacral spine : Severe tenderness over the Sacroiliac joint: right side / left side Range of motion: Flexion of the lumbar spine <60 degrees Range of motion: Extension of the lumbar spine <20 degrees Gaenslen's Test positive R Ioana test: positive right side / left side Thigh Thrust Test R positive Sacral Thrust Test Imaging: X ray lumbar spine from 03/08/24 reviewed X ray R hip from 05/03/24 reviewed Assessment/ Plan : R Sacroiliitis Recommendation of R SI #1. Risks, benefits of procedure discussed and patient verbalized understanding. Admits to anti- coagulant use or medical history of diabetes. Protocol for discontinuation/ continuation of medications ivy procedure discussed. All questions answered. I have spent greater than 30 minutes on patient care today. Dr Wright was available by phone for the evaluation of this patient. The time was used to review the medical records including relevant urine studies and Prescription history (MAPs), review of the available imaging, evaluation and examination of the patient, coordination of care with the medical staff and if applicable referring physicians, as well as creation of the medical record PQRS Narrative: Smoking Status Former smoker Home Medications: Ambulatory Orders Benazepril HCl 20 mg PO DAILY 11/23/15 Vit C/E/Zn/Coppr/Lutein/Zeaxan [Preservision Areds 2 Softgel] 1 each PO BID 11/23/15 Docusate [Colace] 100 mg PO BID 12/27/20 Omeprazole 40 mg PO DAILY 12/27/20 Calcium + D 1200mg 1,200 mg PO BID 06/17/22 Citalopram Hydrobromide [CeleXA] 20 mg PO DAILY 06/17/22 Fluticasone Propion/Salmeterol [[place] 250-50 Inhub] 1 inhalation PO BID 06/17/22 L.acidoph,Paracasei, B.lactis [Probiotic] 1 each PO DAILY 06/17/22 Potassium Gluconate 99 mg PO DAILY 06/17/22 Doxylamine Succinate [Unisom] 25 mg PO HS 12/15/23 Pravastatin Sodium [Pravachol] 40 mg PO HS 12/15/23 busPIRone HCL 10 mg PO DAILY 12/15/23 Calcium Carb/Magnesium Hydrox [Rolaids Ext Str 675-135 mg Chw] 1 tab PO DAILY 12/31/23 HYDROcodone/APAP 5-325MG [[place] 5-325] 1 tab PO Q6HR PRN 3 Days #12 tab 01/05/24 Lidocaine 5% Patch [Lidoderm] 1 patch TOPICAL DAILY #30 patch 01/26/24 traMADol HCl [Ultram] 50 mg PO Q6H PRN #20 tab 01/26/24 Controlled Substance Measures - Controlled Substance Measures Is patient prescribed a controlled substance at discharge?: No
== END ==
LOC: PNWHC3 09:11
PROVIDERS: ATTEND Specialist
DX: M46.1 Sacroiliitis, not elsewhere classified (principal); Z87.891 Personal history of nicotine dependence; Z88.5 Allergy status to narcotic agent; Z88.8 Allergy status to other drugs, medicaments and biological substances; Z88.6 Allergy status to analgesic agent
CPT/HCPCS: 99211

== ENCOUNTER 2024-06-10 12:09 | Day surgery (SDC) | payer MEDICARE, OTHER ==
[~2024-06-10 12:09] MED LIST changes: +LACTATED RINGERS 1,000 ML IV SCH; -SODIUM CHLORIDE 0.9% 250 ML in EMPTY BAG 1 BAG IV PRN
[2024-06-10 12:30] VITALS: RESP 16; TEMP 97
[2024-06-10] MEDS ORDERED: IOPAMIDOL M200 10 ML VIAL ONE (13:07)
[2024-06-10] MEDS ORDERED: ROPIVACAINE 5MG/ML 20ML VIAL ONE (13:07)
[2024-06-10] MEDS ORDERED: methylPREDNISolone ACETATE 40 MG/ML 1 ML VIAL ONE (13:07)
--- NOTE | 2024-06-10 13:17 | P.PCN ---
Date of Procedure: 06/10/24 Procedure(s) Performed: Procedure= Right sacroiliac joints steroid injection under fluoroscopy guidance (fluoroscopy image stored on file in the radiology Department ) Preoperative diagnosis= 1-right sacroiliitis 2-lumbar radiculopathy Postoperative diagnosis=Same as preop Diagnosis . Complication = none Condition= stable Anesthesia= local anesthesia with ropivacaine 0.5% 2 ml only Indication for the procedure= patient complaining of low back pain , examination was positive for severe tenderness over the right sacroiliac joints , and patient diagnosed with right sacroiliitis, for this reason she was good candidate for sacroiliac joint steroid injection. Description of the procedure= procedure risk and benefits discussed with the patient, including but not limited, risk of infection and bleeding, and ALLERGIC reaction to the medication and not complete pain relief and patient agreed with the preceding patient taken to the operating room, placed in prone position or standard monitors applied to the patient then after induction of anesthesia back prepped with chlorhexidine 3 times , Then under strict sterile technique, the right sacroiliac joint the which was identified under fluoroscopy guidance been local infiltration of the skin and subcu interstitial with lidocaine 1% then 23-gauge Quincke Needle advanced slowly under fluoroscopy and placed in the right sacroiliac joint needle placement confirmed with AP and oblique and lateral view, then after that Isovue 200 one mL injected which confirmed the correct needle placement with the appropriate arthrogram of the sacroiliac joint, and after appropriate needle placement confirmed and after negative aspiration, or heme , then Ropivacaine 0.5% 2 mL, and 40 mg of Depo-Medrol mixed together and injected in the right sacroiliac joint after negative aspiration patient tolerated the procedure well without any complication. tolerated the procedure well that any complications and she will follow up in clinic 3 weeks
[2024-06-10] MEDS: IV FLUID CONTINUATION 1,000 ML IV ONE (13:23)
--- NOTE | 2024-06-10 13:29 | FL ---
EXAMINATION TYPE: FL guided pain mgmt statistic DATE OF EXAM: 06/10/2024 CLINICAL INDICATION: Female, 69 years old with history of PAIN; PHH, pain TECHNIQUE: Fluoroscopy. COMPARISON: None. FINDINGS: Fluoroscopic guidance was provided during pain relief procedure performed by Dr. Wright . A total of 20.3 seconds of fluoroscopic time was utilized during the procedure and one image was a cquired. Image acquired shows needle localization at the sacroiliac joint. Degeneration changes of t he visualized joints. Total DAP: [id number] mGym2. IMPRESSION: As Above. [facility], , 06/10/2024 1:26 PM
[2024-06-10 14:04] VITALS: BP 122/76; PULSE 67
== END 2024-06-10 13:46 | disposition home or self-care (01) ==
LOC: ORPAIN 12:09
PROVIDERS: ATTEND Specialist
DX: M46.1 Sacroiliitis, not elsewhere classified (principal); M54.16 Radiculopathy, lumbar region; I10 Essential (primary) hypertension; Z88.5 Allergy status to narcotic agent; Z88.8 Allergy status to other drugs, medicaments and biological substances
CPT/HCPCS: 27096; Q9966; J2795; J1010; G0260

== ENCOUNTER → 2024-06-27 | Outpatient (CLI) | payer MEDICARE, OTHER ==
[2024-06-27 09:54] VITALS: BP 138/89; PULSE 75; RESP 16
--- NOTE | 2024-06-27 10:44 | XR ---
EXAMINATION TYPE: XR lumbar spine 2 or 3V DATE OF EXAM: 06/27/2024 10:23 AM COMPARISON: 03/08/2024 CLINICAL INDICATION: Female, 69 years old with history of M54.16 RADICULOPATHY, LUMBAR REGION; PHH, p ain TECHNIQUE: XR lumbar spine 2 or 3V - Frontal, lateral and coned in L5-S1 lateral views of the spine. FINDINGS: No evidence of any acute osseous pathology. No evidence of loss of vertebral body height i s seen. There is normal alignment of the lumbar vertebral bodies. Scattered disc space narrowing. Mul tilevel marginal osteophyte formation throughout the visualized spine. There is facet joint arthropat hy throughout the spine. Scattered at least mild neural foraminal stenosis. Redemonstration of calcification near the left transverse process of L1 Measuring 5 mm. Right upper quadrant cholecystectomy clips. IMPRESSION: 1. No acute fracture. 2. Moderate multilevel disc degeneration. [facility], , 06/27/2024 10:42 AM
--- NOTE | 2024-06-27 14:30 | P.PAINPG ---
PQRS Measure Charge Sheet Comment: HISTORY OF PRESENT ILLNESS: A 69 yr old female presents today w severe and chronic R hip pain secondary to R Sacroiliitis for evaluation s/p R SI #1. Pt states she experienced 50 % pain relief x 2 wks s/p procedure. Pt states pain level is provoked at 4-7 /10 in intensity, constant, localized in the R lumbosacral spine, predominantly axial, throbbing in character w occasional shooting pain towards the R hip and RLE. Pain is provoked by sitting for periods > 15 min. Pain is alleviated by PT x 6 wks which ended in Apr-May 2024, physician guided home stretches daily since Apr 2024, heat, medications, repositioning and rest . Interventional procedures include R SI x1 (07/01) Medications include Tyl, Aleve REVIEW OF ORGAN SYSTEMS: CONSTITUTIONAL: No fevers or chills. No recent weight loss. NEUROLOGICAL: + numbness and tingling along the distal extremities. No seizure disorders or headaches. MUSCULOSKELETAL: + pain PSYCHIATRIC: Denies current depression or suicidal thoughts. Physical Examinations : Constitutional : Cooperative , not in acute distress . Neurologic : Cranial nerve II to XII intact. No focal neurological deficits. Psychiatric : alert & oriented x 3. Matching mood & appropriate affect. Judgment & insight intact. Musculoskeletal : Cervical Spine Motor strength in the deltoid and biceps: Normal right side. Normal Left side Motor strength biceps and the wrist extensors: Normal right side . Normal left side Motor strength in the triceps muscle: Normal right side. Normal left side Deep tendon reflexes: Normal at the biceps. Normal at Brachioradialis. Normal at triceps Vertebral body tenderness to deep palpation over Cervical facet loading test: positive bilaterally Spurling test: positive bilaterally Neck distraction test: positive bilaterally Mike sign: positive bilaterally Lumbar spine Motor strength lower extremities ,thigh and legs 5/5 Right side , 5/5 Left side Deep tendon reflexes : Normal Knee Jerk. Normal Ankle Jerk Vertebral body tenderness over Delgado Test positive R L4-5-S1 Lumbar facet Loading Test: positive Right / positive Left Range of motion of the lumbar spine Flexion 30 degrees, extension 10 degrees Straight Leg Raise test: Left/ Right positive at degrees Ioana test: positive right / positive left. Severe tenderness over the Sacroiliac joint on the Right / Left sides Gaenslen test: positive bilaterally Seated flexion test: positive bilaterally. Sacral spine : Severe tenderness over the Sacroiliac joint: right side / left side Range of motion: Flexion of the lumbar spine <60 degrees Range of motion: Extension of the lumbar spine <20 degrees Gaenslen's Test positive R Ioana test: positive right side / left side Thigh Thrust Test R positive Sacral Thrust Test Imaging: X ray lumbar spine from 03/08/24 reviewed X ray R hip from 05/03/24 reviewed Assessment/ Plan : R Sacroiliitis Recommendation of lumbar x ray M54.16. All questions answered. I have spent greater than 30 minutes on patient care today. Dr Wright was available by phone for the evaluation of this patient. The time was used to review the medical records including relevant urine studies and Prescription history (MAPs), review of the available imaging, evaluation and examination of the patient, coordination of care with the medical staff and if applicable referring physicians, as well as creation of the medical record PQRS Narrative: Smoking Status Former smoker Hx Alcohol Use (MH) No Home Medications: Ambulatory Orders Benazepril HCl 20 mg PO DAILY 11/23/15 Vit C/E/Zn/Coppr/Lutein/Zeaxan [Preservision Areds 2 Softgel] 1 each PO BID 11/23/15 Docusate [Colace] 100 mg PO BID 12/27/20 Omeprazole 40 mg PO DAILY 12/27/20 Calcium + D 1200mg 1,200 mg PO BID 06/17/22 Citalopram Hydrobromide [CeleXA] 20 mg PO DAILY 06/17/22 Fluticasone Propion/Salmeterol [Wixela 250-50 Inhub] 1 inhalation PO BID 06/17/22 L.acidoph,Paracasei, B.lactis [Probiotic] 1 each PO DAILY 06/17/22 Potassium Gluconate 99 mg PO HS 06/17/22 Doxylamine Succinate [Unisom] 50 mg PO HS 12/15/23 Pravastatin Sodium [Pravachol] 40 mg PO HS 12/15/23 busPIRone HCL 10 mg PO DAILY 12/15/23 Calcium Carb/Magnesium Hydrox [Rolaids Ext Str 675-135 mg Chw] 1 tab PO DAILY PRN 12/31/23 Iv Infusion For Osteoporosis 1 dose IV Q365D 06/08/24 Naproxen Sodium [Aleve] 220 mg PO DIRECTED PRN 06/08/24 Controlled Substance Measures - Controlled Substance Measures Is patient prescribed a controlled substance at discharge?: No
== END ==
LOC: PNWHC3 08:59
PROVIDERS: ATTEND Specialist
DX: M46.1 Sacroiliitis, not elsewhere classified (principal); M51.360 Other intervertebral disc degeneration, lumbar region with discogenic back pain only; Z87.891 Personal history of nicotine dependence; Z88.5 Allergy status to narcotic agent; Z88.8 Allergy status to other drugs, medicaments and biological substances
CPT/HCPCS: 72100; G0463; 99211

== ENCOUNTER → 2024-06-29 | Outpatient (CLI) | payer MEDICARE, OTHER ==
--- NOTE | 2024-06-30 09:13 | MR ---
INDICATION: Patient age:Female; 69 years old; Reason for study: M54.16 RADICULOPATHY, LUMBAR REGION; H. COMPARISONS: Lumbar spine radiograph 06/27/2024, lumbosacral spine radiographs 03/08/2024, CT chest . TECHNIQUE: Multi planar, multi sequence imaging was performed utilizing: T1-weighted, T2-weighted, a nd turbo inversion recovery imaging of the lumbar spine. The patient was not given contrast. FINDINGS: The lumbar vertebral bodies do have preserved heights and alignment. Multilevel disc jami ccation is present. No significant disc height loss identified. No abnormal STIR signal. The conus me dullaris and the distal spinal cord do appear unremarkable with regards to their signal intensity and morphology. L1-L2: No significant disc pathology is identified. The spinal canal and neural foramen are patent. L2-L3: No significant disc pathology is identified. The spinal canal and neural foramen are patent. L3-L4: No significant disc pathology is identified. Ligamentum flavum buckling. Enlargement of the b ilateral facet joints. The spinal canal and neural foramen are patent. L4-L5: A disc bulge is identified with associated enlargement of the facet joints. Bilateral ligamen kendra flavum buckling. Mild spinal canal stenosis. Neural canals are mildly narrowed bilaterally. L5-S1: Small central disc protrusion without significant mass effect upon the thecal sac. Facet randall ints are enlarged. Neural canals do remain patent. Other significant findings: Somewhat linear low T1/T2 signal focus in the right perinephric region co rresponding to migrated cholecystectomy clip on CT. IMPRESSION: Minimal multilevel disc degeneration of the lumbar spine. Small L5-S1 central disc protrusion without significant central canal stenosis. [facility], , 06/30/2024 9:11 AM
== END | disposition home or self-care (01) ==
LOC: RADMRIMAIN 15:04
PROVIDERS: ATTEND Specialist
DX: M48.061 Spinal stenosis, lumbar region without neurogenic claudication (principal); M51.17 Intervertebral disc disorders with radiculopathy, lumbosacral region
CPT/HCPCS: 72148

== ENCOUNTER → 2024-07-13 | Outpatient (CLI) | payer MEDICARE, OTHER ==
[2024-07-13 12:39] VITALS: BP 137/83; PULSE 74; RESP 16; TEMP 98.1
--- NOTE | 2024-07-13 15:56 | P.PAINPG ---
PQRS Measure Charge Sheet Comment: HISTORY OF PRESENT ILLNESS: A 69 yr old female presents today w severe and chronic R hip pain secondary to R Sacroiliitis, L4-L5 spinal stenosis, L5-S1 radiculopathy for evaluation. Pt states pain level is provoked at 4-7 /10 in intensity, intermittent, localized in the R lumbosacral spine, predominantly axial, throbbing in character w occasional shooting pain towards the R hip and RLE. Pain is provoked by sitting for periods > 15 min. Pain is alleviated by PT x 6 wks which ended in Apr-May 2024, physician guided home stretches daily since Apr 2024, heat, medications, repositioning and rest . Interventional procedures include R SI x1 (07/01) Medications include Tyl, Aleve REVIEW OF ORGAN SYSTEMS: CONSTITUTIONAL: No fevers or chills. No recent weight loss. NEUROLOGICAL: + numbness and tingling along the distal extremities. No seizure disorders or headaches. MUSCULOSKELETAL: + pain PSYCHIATRIC: Denies current depression or suicidal thoughts. Physical Examinations : Constitutional : Cooperative , not in acute distress . Neurologic : Cranial nerve II to XII intact. No focal neurological deficits. Psychiatric : alert & oriented x 3. Matching mood & appropriate affect. Judgment & insight intact. Musculoskeletal : Cervical Spine Motor strength in the deltoid and biceps: Normal right side. Normal Left side Motor strength biceps and the wrist extensors: Normal right side . Normal left side Motor strength in the triceps muscle: Normal right side. Normal left side Deep tendon reflexes: Normal at the biceps. Normal at Brachioradialis. Normal at triceps Vertebral body tenderness to deep palpation over Cervical facet loading test: positive bilaterally Spurling test: positive bilaterally Neck distraction test: positive bilaterally Mike sign: positive bilaterally Lumbar spine Motor strength lower extremities ,thigh and legs 5/5 Right side , 5/5 Left side Deep tendon reflexes : Normal Knee Jerk. Normal Ankle Jerk Vertebral body tenderness over L5 Delgado Test positive R L4-5-S1 Lumbar facet Loading Test: positive Right / positive Left Range of motion of the lumbar spine Flexion 30 degrees, extension 10 degrees Straight Leg Raise test: Left/ Right positive at degrees Ioana test: positive right / positive left. Severe tenderness over the Sacroiliac joint on the Right / Left sides Gaenslen test: positive bilaterally Seated flexion test: positive bilaterally. Sacral spine : Severe tenderness over the Sacroiliac joint: right side / left side Range of motion: Flexion of the lumbar spine <60 degrees Range of motion: Extension of the lumbar spine <20 degrees Gaenslen's Test positive R Ioana test: positive right side / left side Thigh Thrust Test R positive Sacral Thrust Test Imaging: MRI non ncontrast lumbar spine from 06/29/2024 reviewed X ray R hip from 05/03/24 reviewed Assessment/ Plan : R Sacroiliitis, L4-L5 spinal stenosis, L5-S1 radiculopathy Recommendation of R TFESI L4-L5/ L5-S1 #1. Risks, benefits of procedure discussed and patient verbalized understanding. Protocol for discontinuation/continuation of medication surrounding procedure discussed. All questions answered. I have spent greater than 30 minutes on patient care today. Dr Wright was available by phone for the evaluation of this patient. The time was used to review the medical records including relevant urine studies and Prescription history (MAPs), review of the available imaging, evaluation and examination of the patient, coordination of care with the medical staff and if applicable referring physicians, as well as creation of the medical record - Pain Location Lower Back Pharmacological Interventions: Medication, Topical Medication PQRS Narrative: Smoking Status Former smoker Hx Alcohol Use (MH) No Home Medications: Ambulatory Orders Benazepril HCl 20 mg PO DAILY 11/23/15 Vit C/E/Zn/Coppr/Lutein/Zeaxan [Preservision Areds 2 Softgel] 1 each PO BID 11/23/15 Docusate [Colace] 100 mg PO BID 12/27/20 Omeprazole 40 mg PO DAILY 12/27/20 Calcium + D 1200mg 1,200 mg PO BID 06/17/22 Citalopram Hydrobromide [CeleXA] 20 mg PO DAILY 06/17/22 Fluticasone Propion/Salmeterol [Wixela 250-50 Inhub] 1 inhalation PO BID 06/17/22 L.acidoph,Paracasei, B.lactis [Probiotic] 1 each PO DAILY 06/17/22 Potassium Gluconate 99 mg PO HS 06/17/22 Doxylamine Succinate [Unisom] 50 mg PO HS 12/15/23 Pravastatin Sodium [Pravachol] 40 mg PO HS 12/15/23 busPIRone HCL 10 mg PO DAILY 12/15/23 Calcium Carb/Magnesium Hydrox [Rolaids Ext Str 675-135 mg Chw] 1 tab PO DAILY PRN 12/31/23 Iv Infusion For Osteoporosis 1 dose IV Q365D 06/08/24 Naproxen Sodium [Aleve] 220 mg PO DIRECTED PRN 06/08/24 Controlled Substance Measures - Controlled Substance Measures Is patient prescribed a controlled substance at discharge?: Yes When asked, does pt state using other controlled substances?: No If prescribed controlled substance>3 days was MAPS reviewed?: Prescribed <3 Days
== END ==
LOC: PNWHC3 12:19
PROVIDERS: ATTEND Specialist
DX: M46.1 Sacroiliitis, not elsewhere classified (principal); M48.061 Spinal stenosis, lumbar region without neurogenic claudication; M54.17 Radiculopathy, lumbosacral region; M25.551 Pain in right hip; Z88.5 Allergy status to narcotic agent; Z87.891 Personal history of nicotine dependence
CPT/HCPCS: 99212

== ENCOUNTER 2024-08-12 09:44 | Day surgery (SDC) | payer MEDICARE, OTHER ==
[2024-08-12 11:59] VITALS: RESP 16; TEMP 97.8
[2024-08-12] MEDS ORDERED: LACTATED RINGERS 1,000 ML IV SCH (12:15)
[2024-08-12] MEDS ORDERED: IOPAMIDOL M200 10 ML VIAL ONE (12:19)
[2024-08-12] MEDS ORDERED: DEXAMETHASONE SOD PHOSPHATE 10 MG/ML 1 ML VIAL ONE (12:19)
--- NOTE | 2024-08-12 12:36 | P.PCN ---
Date of Procedure: 08/12/24 Description of Procedure: DESCRIPTION OF PROCEDURE(S): PREOPERATIVE DIAGNOSIS: Lumbar radiculopathy POSTOPERATIVE DIAGNOSIS: Lumbar radiculopathy PROCEDURE 1. Transforaminal epidural steroid injection under fluoroscopic guidance RIGHT L4-L5 2. Lumbar epidurogram ANESTHESIA: Local with 1% lidocaine 3 ml ;Valium 10mg PO prior to pre op PROCEDURE INDICATION: The patient with low back pain and radiculopathy symptoms unresponsive to conservative treatment. patient is complaining of radicular pain to her calves. patient also has complaints of diffuse dull low back pain on the right side it radiates into her hip. She does endorse some facet loading on the right side pain with flexion and extension PROCEDURE DESCRIPTION / TECHNIQUE: The patient was seen and identified in the preoperative area. Risks, benefits, complications, and alternatives were discussed with the patient. The patient agreed to proceed with the procedure and signed the consent. IV was started, and vital signs were stable. Patient was taken to the OR and time out was completed. The patient was placed in the prone position on procedure table and a pillow was placed under the abdomen to reduce lumbar lordosis. The lumbosacral area was prepped and draped in the usual sterile fashion. Vital signs were closely monitored during the procedure. Conscious sedation was used. Using oblique fluoroscopy, the chin of the ``Mendel dog at RIGHT L4 pedicle and the skin and deeper tissues just below was localized with 1% lidocaine. Subsequently, a 22-gauge 5-inch spinal needle was advanced under a tunneled view fluoroscopic guidance just underneath the chin of the ``Mendel dog RIGHT L4 . Under Anterior posterior view, the needle was then advanced to first 1/3 of the neuroforaminal space. After negative aspiration of CSF and blood and with no paresthesias, 1 mL of Omnipaque-240 contrast dye was injected excellent epidurogram and outlining [id number] root. Subsequently, of the 5 ml solution consisting of 1ml 10mg/ml dexamethasone with 4 ml PF normal saline . At the end of the procedure, skin was cleansed, and bandages were applied. COMPLICATIONS: None COMMENTS: DISPOSITION / PLANS: The patient was placed in a supine position and transferred to the recovery area in a stable condition for observation. There was no evidence of lower extremity motor or sensory deficit after the procedure. Patient was discharged from the recovery room after meeting discharge criteria. Home discharge instructions were given to the patient by the staff. The patient was reexamined prior to discharge. We'll repeat procedure in 4 weeks time
--- NOTE | 2024-08-12 12:46 | FL ---
Fluoroscopy INDICATION: Pain FINDINGS: Fluoroscopy time: 37.3 seconds. Total dose area product (DAP) in uGy*m?, mGy*cm? (or similar): 0.34162 Images obtained: 3. Images document needle directed towards the lumbar spine IMPRESSION: 1. Documentation of fluoroscopy. [facility], , 08/12/2024 12:44 PM
[2024-08-12 12:47] VITALS: BP 141/82; PULSE 64
== END 2024-08-12 13:00 | disposition home or self-care (01) ==
LOC: ORPAIN 09:44
PROVIDERS: ATTEND Anesthesiology
DX: M54.16 Radiculopathy, lumbar region (principal); Z88.5 Allergy status to narcotic agent; Z88.8 Allergy status to other drugs, medicaments and biological substances
CPT/HCPCS: 64483; J1100; Q9966

== ENCOUNTER → 2024-08-29 | Outpatient (CLI) | payer MEDICARE, OTHER ==
[2024-08-29 09:42] VITALS: BP 121/81; PULSE 75; RESP 16; TEMP 96.8
--- NOTE | 2024-08-29 15:59 | P.PAINPG ---
Objective - Vital Signs Vital signs: Vital Signs Temp 96.8 F L 08/29/24 09:34 Pulse 75 08/29/24 09:34 Resp 16 08/29/24 09:34 BP 121/81 08/29/24 09:34 Pulse Ox 94 L 08/29/24 09:34 FiO2 Intake & Output 08/28/24 08/29/24 08/29/24 18:59 06:59 18:59 Weight 61.689 kg PQRS Measure Charge Sheet Mode of Arrival: Ambulatory Comment: HISTORY OF PRESENT ILLNESS: A 69 yr old female presents today w severe and chronic R hip pain secondary to R Sacroiliitis, L4-L5 spinal stenosis, L5-S1 radiculopathy for evaluation s/p R TFESI L4-L5 #1. Pts tates she experienced 50% pain relief x 2 wks s/p proceudre. Pt states pain level is provoked at 4-6 /10 in intensity, intermittent, localized in the lumbosacral spine, predominantly axial, throbbing in character without shooting pain. Pain is provoked by standing/ walking for periods > 20 min. Pain is alleviated by PT x 6 wks which ended in Apr-May 2024, physician guided home stretches daily since Apr 2024, heat, medications, repositioning and rest . Interventional procedures include R SI x1 (07/01) Medications include Tyl, Aleve REVIEW OF ORGAN SYSTEMS: CONSTITUTIONAL: No fevers or chills. No recent weight loss. NEUROLOGICAL: + numbness and tingling along the distal extremities. No seizure disorders or headaches. MUSCULOSKELETAL: + pain PSYCHIATRIC: Denies current depression or suicidal thoughts. Physical Examinations : Constitutional : Cooperative , not in acute distress . Neurologic : Cranial nerve II to XII intact. No focal neurological deficits. Psychiatric : alert & oriented x 3. Matching mood & appropriate affect. Judgment & insight intact. Musculoskeletal : Cervical Spine Motor strength in the deltoid and biceps: Normal right side. Normal Left side Motor strength biceps and the wrist extensors: Normal right side . Normal left side Motor strength in the triceps muscle: Normal right side. Normal left side Deep tendon reflexes: Normal at the biceps. Normal at Brachioradialis. Normal at triceps Vertebral body tenderness to deep palpation over Cervical facet loading test: positive bilaterally Spurling test: positive bilaterally Neck distraction test: positive bilaterally Mike sign: positive bilaterally Lumbar spine Motor strength lower extremities ,thigh and legs 5/5 Right side , 5/5 Left side Deep tendon reflexes : Normal Knee Jerk. Normal Ankle Jerk Vertebral body tenderness over L5 Delgado Test positive R L4-5-S1 Lumbar facet Loading Test: positive Right / positive Left L4-L5, L5-S1 Range of motion of the lumbar spine Flexion 30 degrees, extension 10 degrees Straight Leg Raise test: Left/ Right positive at degrees Ioana test: positive right / positive left. Severe tenderness over the Sacroiliac joint on the Right / Left sides Gaenslen test: positive bilaterally Seated flexion test: positive bilaterally. Sacral spine : Severe tenderness over the Sacroiliac joint: right side / left side Range of motion: Flexion of the lumbar spine <60 degrees Range of motion: Extension of the lumbar spine <20 degrees Gaenslen's Test positive R Ioana test: positive right side / left side Thigh Thrust Test R positive Sacral Thrust Test Imaging: MRI non ncontrast lumbar spine from 06/29/2024 reviewed X ray R hip from 05/03/24 reviewed Assessment/ Plan : R Sacroiliitis, L4-L5 spinal stenosis, L5-S1 radiculopathy Recommendation of BL MBB L4-L5, L5-1 #1. Risks, benefits of procedure discussed and patient verbalized understanding. Protocol for discontinuation/continuation of medication surrounding procedure discussed. Minimal anesthesia including Fentanyl and Versed if clinically indicated. All questions answered. I have spent greater than 30 minutes on patient care today. Dr Wright was available by phone for the evaluation of this patient. The time was used to review the medical records including relevant urine studies and Prescription history (MAPs), review of the available imaging, evaluation and examination of the patient, coordination of care with the medical staff and if applicable referring physicians, as well as creation of the medical record - Pain Location Bilateral Lower Back Non-Pharmacological Interventions: Elevation, Heat, Ice, Inactivity, Physical Therapy, Position/Reposition, Sitting, Standing Pharmacological Interventions: Epidural, PRN Medication PQRS Narrative: Smoking Status Former smoker Blood Pressure 121/81 Pain Intensity [Bilateral 5 Lower Back] Scale Used Numeric (1 - 10) Hx Alcohol Use (MH) No Home Medications: Ambulatory Orders Benazepril HCl 20 mg PO DAILY 11/23/15 Vit C/E/Zn/Coppr/Lutein/Zeaxan [Preservision Areds 2 Softgel] 1 each PO BID 11/23/15 Docusate [Colace] 100 mg PO BID 12/27/20 Omeprazole 40 mg PO DAILY 12/27/20 Calcium + D 1200mg 1,200 mg PO BID 06/17/22 Citalopram Hydrobromide [CeleXA] 20 mg PO DAILY 06/17/22 Fluticasone Propion/Salmeterol [Wixela 250-50 Inhub] 1 inhalation PO BID 06/17/22 L.acidoph,Paracasei, B.lactis [Probiotic] 1 each PO DAILY 06/17/22 Potassium Gluconate 99 mg PO HS 06/17/22 Doxylamine Succinate [Unisom] 50 mg PO HS 12/15/23 Pravastatin Sodium [Pravachol] 40 mg PO HS 12/15/23 busPIRone HCL 10 mg PO DAILY 12/15/23 Calcium Carb/Magnesium Hydrox [Rolaids Ext Str 675-135 mg Chw] 1 tab PO DAILY PRN 12/31/23 Iv Infusion For Osteoporosis 1 dose IV Q365D 06/08/24 Naproxen Sodium [Aleve] 220 mg PO DIRECTED PRN 06/08/24 diazePAM [Valium] 5 mg PO DAILY 1 Days #2 tab 07/13/24 Controlled Substance Measures - Controlled Substance Measures Is patient prescribed a controlled substance at discharge?: No
== END ==
LOC: PNWHC3 09:18
PROVIDERS: ATTEND Specialist
DX: M47.27 Other spondylosis with radiculopathy, lumbosacral region (principal); M48.07 Spinal stenosis, lumbosacral region; M46.1 Sacroiliitis, not elsewhere classified; Z87.891 Personal history of nicotine dependence; Z88.5 Allergy status to narcotic agent; Z88.8 Allergy status to other drugs, medicaments and biological substances
CPT/HCPCS: 99211

== ENCOUNTER 2024-09-27 08:58 | Day surgery (SDC) | payer MEDICARE, OTHER ==
[2024-09-27 09:34] VITALS: RESP 16; TEMP 97.3
[2024-09-27] MEDS: IV FLUID CONTINUATION 1,000 ML IV ONE (09:34)
[2024-09-27] MEDS: LACTATED RINGERS 1,000 ML IV SCH (09:38)
[2024-09-27] MEDS ORDERED: ROPIVACAINE 5 MG/ML 30 ML VIAL ONE (10:06)
[2024-09-27] MEDS ORDERED: MIDAZOLAM 2 MG/2 ML VIAL ONE (10:06)
[2024-09-27] MEDS ORDERED: fentaNYL (PF) 50 MCG/ML 2 ML AMP ONE (10:06)
[2024-09-27] MEDS: IV FLUID CONTINUATION 600 ML IV ONE (10:29)
--- NOTE | 2024-09-27 10:36 | P.PCN ---
Description of Procedure: Preprocedure diagnosis. 1. Lumbar spondylosis with facet joint arthropathy without myelopathy. 2. Lumbar degenerative disc disease. Postprocedure diagnosis. As above. Procedure done. Bilateral diagnostic block with local anesthetics at L3, L4, L5 medial branch to target the facet joint L4- 5 and L5-S1 with fluoroscopic guidan ce (fluoroscopy images are available in the radiology department) . Anesthesia. Moderate sedation with intravenous Versed 2 mg and fentanyl 100 microgram and local infiltration with local anesthetics. In OR, continuous pulse ox, EKG, blood pressure and verbal communication was maintained. Sedation time-start 1006 end 1023. Blood loss. Minimal. Indication. The patient has low back pain secondary to lumbar facet joint arthropathy. Discussed the procedure and alternative and complications which includes infection, bleeding, nerve damage, paralysis ,aggravation of pain. Patient understands and all questions were answered. Patient iunderstands that if any pain relief occurs it will last for a few hours to a few days maximum. Procedure description. After getting consent patient was taken in the OR in prone position. Back prepped with chlorhexidine and draped in sterile fashion. After injecting 5 mL of plain 1% lidocaine subcutaneously, a 22-gauge spinal needle was introduced under tunnel vision of the fluoroscope at the junction of the superior articular process with RIGHT ala of the sacrum. With slight oblique fluoroscope, after injecting 5 mL of plain 1% lidocaine subcutaneously, a 22-gauge spinal needle was introduced under tunnel vision of the fluoroscope at the junction of the superior articular process with RIGHT L5 transverse process, junction of the superior articular process with the RIGHT L4 transverse process. Negative CSF, negative blood, negative paresthesia. After needle position confirmation by AP and crosstable lateral view, after negative aspiration, half milliliters of solution were injected at each point. Total 1- 1/2 mL of solution was injected on the right side which consists of 0.5% ropivacaine. In exactly same way, LEFT sided injections were done at the following 3 points. Junction of the superior articular process with left ala of the sacrum, junction of the superior articular process with the left L5 transverse process, junction of the superior articular process with left L4 transverse process using 0.5 mL of solution at each point. Total 1-1/2 mL of solution was injected on the left side which consists of 0.5% ropivacaine . Spinal needles were taken out and bandages were applied. Disposition. Patient tolerated the procedure well. No complication. Discharged home in stable condition
--- NOTE | 2024-09-27 10:40 | FL ---
Fluoroscopy INDICATION: Pain FINDINGS: Fluoroscopy time: 36 seconds. Total dose area product (DAP) in uGy*m?, mGy*cm? (or similar): 0.18371 Images obtained: 5. Images document Ronald directed towards the lumbar spine IMPRESSION: 1. Documentation of fluoroscopy. [facility], Workstation: [email or web address], 09/27/2024 10:38 AM
[2024-09-27 11:05] VITALS: BP 113/58; PULSE 67
== END 2024-09-27 11:08 | disposition home or self-care (01) ==
LOC: ORPAIN 08:58
PROVIDERS: ATTEND Pain Medicine Interventional Pain Medicine
DX: M47.816 Spondylosis without myelopathy or radiculopathy, lumbar region (principal); M51.360 Other intervertebral disc degeneration, lumbar region with discogenic back pain only; Z88.5 Allergy status to narcotic agent; Z88.8 Allergy status to other drugs, medicaments and biological substances
CPT/HCPCS: 64493; 64494; J2250; J3010; J2795; 99152